=== PATIENT | female | born 1940 | race Asian ===

== ENCOUNTER → 2020-11-01 10:54 | Outpatient (BNVA) | payer MEDICARE, MEDICAID, SELFPAY | PROVIDERS: Visit Provider Student in an Organized Health Care Education/Training Program | DX: M19.90 Unspecified osteoarthritis, unspecified site (principal) | CPT/HCPCS: 99212 ==

== ENCOUNTER 2020-12-07 14:09 | Outpatient (REF) | payer MEDICARE, MEDICAID, SELFPAY ==
--- NOTE | ~2020-12-07 | MM_ITS ---
EXAMINATION: MM SCREENING DIGITAL BREAST TOMOSYNTHESIS, BILATERAL CLINICAL INFORMATION: Screening. Asymptomatic. The lifetime risk of breast cancer based on the Tyrer-Cuzick Model is 1%. COMPARISON: Outside mammography: 10/17/2015, 12/21/2013 ([facility], [place], [place]). TECHNIQUE: Digital breast tomosynthesis is performed in both the craniocaudal and mediolateral oblique views along with computer-aided detection (CAD). Synthesized 2D images are generated from the tomosynthesis. FINDINGS: The breasts are heterogeneously dense, which may obscure small masses (ACR BI-RADS breast composition Category c). There are no significant masses, abnormal calcifications, or other abnormalities. There is fibronodular parenchymal pattern with stable retroareolar duct ectasia, similar to prior outside exams. Bilateral scattered vascular and benign round calcifications are again noted. No significant changes. MM/MM tomosynthesis screening BI IMPRESSION: No significant changes from prior outside studies. ASSESSMENT: BI-RADS 2: Benign RECOMMENDATION: Routine annual mammography screening. This patient's information was entered into a reminder system with a target due date for their next mammogram.
== END 2020-12-07 14:10 | disposition home or self-care (01) ==
LOC: HO.MAMMO 14:09
PROVIDERS: Visit Provider Internal Medicine
DX: Z12.31 Encounter for screening mammogram for malignant neoplasm of breast (principal)
CPT/HCPCS: 77063; 77067

== ENCOUNTER 2021-10-29 08:57 | Outpatient (REF) | payer MEDICARE, MEDICAID, SELFPAY ==
[2021-10-29 11:52] LABS: Alanine Aminotransferase 13 U/L (0-31); Albumin Level 4.2 g/dL (3.5-5.0); Alkaline Phosphatase 60 U/L (39-117); Anion Gap 15 (12-20); Aspartate Amino Transferase 22 U/L (5-31); Bilirubin Total 0.5 mg/dL (0.0-1.0); Blood Urea Nitrogen 28 mg/dL (9-16); Calcium 9.7 mg/dL (8.4-10.2); Carbon Dioxide 25 mmol/L (22-29); Chloride 104 mmol/L (96-108); Estimated Glomerular Filt Rate 53; Glucose Random 92 mg/dL (60-115); Potassium 4.5 mmol/L (3.3-5.1); Sodium 139 mmol/L (135-145); Total Protein 7.4 g/dL (6.5-8.0)
== END 2021-10-29 08:58 | disposition home or self-care (01) ==
LOC: HO.LAB 08:57
PROVIDERS: PCP Internal Medicine; Visit Provider Nurse Practitioner Family
DX: M19.90 Unspecified osteoarthritis, unspecified site (principal)
CPT/HCPCS: 36415; 80053; 99212

== ENCOUNTER 2021-12-27 07:34 | Outpatient (REF) | payer MEDICARE, MEDICAID, SELFPAY ==
--- NOTE | ~2021-12-27 | MM_ITS ---
EXAMINATION: MM SCREENING DIGITAL BREAST TOMOSYNTHESIS, BILATERAL CLINICAL INFORMATION: Screening. Asymptomatic. The lifetime risk of breast cancer based on the Tyrer-Cuzick Model is 0.7%. COMPARISON: Mammography: December 07, 2020 and studies dating back to December 23, 2011. TECHNIQUE: Digital breast tomosynthesis is performed in both the craniocaudal and mediolateral oblique views along with computer-aided detection (CAD). Synthesized 2D images are generated from the tomosynthesis. FINDINGS: The breasts are heterogeneously dense, which may obscure small masses (ACR BI-RADS breast composition Category c). There is a stable parenchymal pattern of the right breast with no new abnormal dominant masses or suspicious grouping of microcalcifications. Within the upper outer aspect of the left breast there is a region of some architectural distortion which appears more prominent on mediolateral oblique view and spot compression view is recommended. This likely represents superimposition of fibroglandular tissue. MM/MM tomosynthesis screening BI IMPRESSION: Question increase in prominence of region of architectural distortion superior aspect of the right breast for which spot compression view is recommended. ASSESSMENT: BI-RADS 0: Incomplete - Need Additional Imaging Evaluation RECOMMENDATION: 1. Additional views of the left breast 2. Targeted ultrasound if warranted after review of the additional views. 3. Radiology department staff will contact the patient for additional imaging. This patient's information was entered into a reminder system with a target due date for their next mammogram.
== END 2021-12-27 07:35 | disposition home or self-care (01) ==
LOC: HO.MAMMO 07:34
PROVIDERS: Visit Provider Internal Medicine
DX: Z12.31 Encounter for screening mammogram for malignant neoplasm of breast (principal)
CPT/HCPCS: 77063; 77067

== ENCOUNTER 2022-02-13 10:48 | Outpatient (REF) | payer MEDICARE, MEDICAID, SELFPAY ==
--- NOTE | ~2022-02-13 | US_ITS ---
EXAMINATION: MM DIAGNOSTIC DIGITAL BREAST TOMOSYNTHESIS, LEFT. Targeted left breast ultrasound CLINICAL INFORMATION: Architectural distortion superior aspect left breast COMPARISON: Mammography: December 27, 2021 and studies dating back to December 23, 2011 TECHNIQUE: Digital breast tomosynthesis is performed. 2D images are generated from the tomosynthesis. The following views are obtained: 90 degree mediolateral and mediolateral oblique views. FINDINGS: The breasts are heterogeneously dense, which may obscure small masses (ACR BI-RADS breast composition Category c). Additional views show no significant mass, architectural abnormality, or abnormal calcifications. The region compresses out with no persistent suspicious mass identified. Targeted left breast ultrasound superior aspect did not demonstrate any abnormal cystic or solid masses. No region of distal sound shadowing appreciated. No edematous change within the parenchyma is seen. Results are discussed with the patient at time of visit. US/US breast LT limited IMPRESSION: No mammographic evidence of malignancy. ASSESSMENT: BI-RADS 1: Negative RECOMMENDATION: Routine annual mammography screening. This patient's information was entered into a reminder system with a target due date for their next mammogram.
--- NOTE | ~2022-02-13 | MM_ITS ---
EXAMINATION: MM DIAGNOSTIC DIGITAL BREAST TOMOSYNTHESIS, LEFT US BREAST, TARGETED, LEFT CLINICAL INFORMATION: Architectural distortion superior aspect left breast. COMPARISON: Mammography: 12/27/2021 and studies dating back to 12/23/2011. TECHNIQUE: Digital breast tomosynthesis is performed. 2D images are generated from the tomosynthesis. The following views are obtained: 90 degree mediolateral and mediolateral oblique views. FINDINGS: The breasts are heterogeneously dense, which may obscure small masses (ACR BI-RADS breast composition Category c). MAMMOGRAM: Additional views show no significant mass, architectural abnormality, or abnormal calcifications. The region compressed out with no persistent suspicious mass identified. ULTRASOUND: Targeted left breast ultrasound superior aspect did not demonstrate any abnormal cystic or solid masses. No region of distal sound shadowing appreciated. No edematous change within the parenchyma is seen. Results are discussed with the patient at time of visit. MM/MM tomosynthesis added views L IMPRESSION: No mammographic evidence of malignancy. ASSESSMENT: BI-RADS 1: Negative RECOMMENDATION: Routine annual mammography screening. This patient's information was entered into a reminder system with a target due date for their next mammogram.
== END 2022-02-13 10:49 | disposition home or self-care (01) ==
LOC: HO.MAMMO 10:48
PROVIDERS: PCP Internal Medicine; Visit Provider Internal Medicine
DX: R92.8 Other abnormal and inconclusive findings on diagnostic imaging of breast (principal)
CPT/HCPCS: 76642; 77061; 77065

== ENCOUNTER 2022-09-05 15:49 | Outpatient (REF) | payer MEDICARE, MEDICAID, SELFPAY ==
[2022-09-05 16:02] LABS: MANUAL DIFF FLAG NO
[2022-09-05 18:03] LABS: Basophils Percent Auto 0.5 % (0-2); Eosinophils Absolute Auto 0.2 X10*3/uL (0.0-0.4); Eosinophils Percent Auto 1.8 % (0-4); Hemoglobin 11.7 g/dl (12.0-16.0); Imm Gran Abs Auto 0.04 X10*3/uL (0.00-0.03); Imm Gran Pct Auto 0.5 % (0.0-0.4); Lymphocytes Absolute Auto 2.3 X10*3/uL (1.2-4.9); Lymphocytes Percent Auto 27.3 % (20-40); Mean Corpuscular HGB Conc 32.5 g/dl (31.0-35.0); Mean Corpuscular Hemoglobin 30.9 pg (27.0-33.0); Mean Platelet Volume 12.4 fL (9.4-12.3); Monocytes Absolute Auto 0.7 X10*3/uL (0.1-1.2); Monocytes Percent Auto 8.7 % (2-11); Neutrophils Absolute Auto 5.1 x10*3/uL (2.0-8.3); Neutrophils Percent Auto 61.2 % (45-73); Platelet Count 285 X10*3/uL (160-400); Red Blood Count 3.79 X10*6/uL (4.20-5.50); Red Cell Distribution Width 13.1 % (11.0-16.0); White Blood Count 8.3 X10*3/uL (4.8-10.8)
[2022-09-05 18:13] LABS: Alanine Aminotransferase 15 U/L (0-31); Albumin Level 4.2 g/dL (3.5-5.0); Alkaline Phosphatase 73 U/L (39-117); Anion Gap 18 (12-20); Aspartate Amino Transferase 20 U/L (5-31); Bilirubin Total 0.5 mg/dL (0.0-1.0); Blood Urea Nitrogen 19 mg/dL (9-16); Calcium 10.3 mg/dL (8.4-10.2); Carbon Dioxide 25 mmol/L (22-29); Chloride 101 mmol/L (96-108); Cholesterol 212 mg/dL; Estimated Glomerular Filt Rate 60; Glucose Random 90 mg/dL (60-115); HDL Cholesterol 62 mg/dL; LDL Cholesterol Calculated 122 mg/dl; Potassium 4.4 mmol/L (3.3-5.1); Sodium 140 mmol/L (135-145); Total Protein 7.6 g/dL (6.5-8.0); Triglycerides 141 mg/dL
[2022-09-05 18:33] LABS: Vitamin D 25-OH Total 30.1 ng/mL (>30)
== END 2022-09-05 15:50 | disposition home or self-care (01) ==
LOC: HO.LAB 15:49
PROVIDERS: PCP Internal Medicine; Visit Provider Internal Medicine
DX: Z00.00 Encounter for general adult medical examination without abnormal findings (principal); E78.2 Mixed hyperlipidemia; I10 Essential (primary) hypertension; M80.012 Age-related osteoporosis with current pathological fracture, left shoulder
CPT/HCPCS: 36415; 80053; 80061; 82306; 85025

== ENCOUNTER 2023-06-09 09:58 | Outpatient (REF) | payer MEDICARE, SELFPAY ==
[2023-06-09 10:17] LABS: MANUAL DIFF FLAG NO
[2023-06-09 10:57] LABS: Basophils Percent Auto 0.3 % (0-2); Eosinophils Absolute Auto 0.1 X10*3/uL (0.0-0.4); Eosinophils Percent Auto 0.7 % (0-4); Hematocrit 34.4 % (37.0-47.0); Hemoglobin 11.3 g/dl (12.0-16.0); Imm Gran Abs Auto 0.05 X10*3/uL (0.00-0.03); Imm Gran Pct Auto 0.7 % (0.0-0.4); Lymphocytes Percent Auto 29.3 % (20-40); Mean Corpuscular HGB Conc 32.8 g/dl (31.0-35.0); Mean Corpuscular Hemoglobin 30.1 pg (27.0-33.0); Mean Corpuscular Volume 91.7 fL (80.0-98.0); Mean Platelet Volume 11.9 fL (9.4-12.3); Monocytes Absolute Auto 0.6 X10*3/uL (0.1-1.2); Monocytes Percent Auto 8.3 % (2-11); Neutrophils Absolute Auto 4.1 x10*3/uL (2.0-8.3); Neutrophils Percent Auto 60.7 % (45-73); Platelet Count 217 X10*3/uL (160-400); Red Blood Count 3.75 X10*6/uL (4.20-5.50); Red Cell Distribution Width 13.3 % (11.0-16.0); White Blood Count 6.8 X10*3/uL (4.8-10.8)
[2023-06-09 11:33] LABS: Alanine Aminotransferase 13 U/L (0-31); Alkaline Phosphatase 55 U/L (39-117); Anion Gap 14 (12-20); Aspartate Amino Transferase 19 U/L (5-31); Bilirubin Total 0.8 mg/dL (0.0-1.0); Blood Urea Nitrogen 19 mg/dL (9-16); Calcium 10.2 mg/dL (8.4-10.2); Carbon Dioxide 26 mmol/L (22-29); Chloride 100 mmol/L (96-108); Cholesterol 190 mg/dL (<200); Estimated Glomerular Filt Rate 59; Glucose Random 92 mg/dL (60-115); HDL Cholesterol 48 mg/dL (>40); LDL Cholesterol Calculated 115 mg/dL (<100); Potassium 3.9 mmol/L (3.3-5.1); Sodium 136 mmol/L (135-145); Total Protein 7.7 g/dL (6.5-8.0); Triglycerides 139 mg/dL (<150)
== END 2023-06-09 09:59 | disposition home or self-care (01) ==
LOC: HO.LAB 09:58
PROVIDERS: PCP Internal Medicine; Visit Provider Internal Medicine
DX: E78.2 Mixed hyperlipidemia (principal); I10 Essential (primary) hypertension; Z87.310 Personal history of (healed) osteoporosis fracture; Z68.31 Body mass index [BMI] 31.0-31.9, adult
CPT/HCPCS: 36415; 80053; 80061; 85025

== ENCOUNTER 2023-10-27 09:55 | Outpatient (REF) | payer MEDICARE, SELFPAY ==
[2023-10-27 10:41] LABS: MANUAL DIFF FLAG NO
[2023-10-27 10:50] LABS: Basophils Percent Auto 0.6 % (0-2); Eosinophils Absolute Auto 0.1 X10*3/uL (0.0-0.4); Eosinophils Percent Auto 1.9 % (0-4); Hematocrit 34.7 % (37.0-47.0); Hemoglobin 11.2 g/dl (12.0-16.0); Imm Gran Abs Auto 0.02 X10*3/uL (0.00-0.03); Imm Gran Pct Auto 0.3 % (0.0-0.4); Lymphocytes Absolute Auto 1.7 X10*3/uL (1.2-4.9); Lymphocytes Percent Auto 26.6 % (20-40); Mean Corpuscular HGB Conc 32.3 g/dl (31.0-35.0); Mean Corpuscular Hemoglobin 30.2 pg (27.0-33.0); Mean Corpuscular Volume 93.5 fL (80.0-98.0); Mean Platelet Volume 12.1 fL (9.4-12.3); Monocytes Absolute Auto 0.6 X10*3/uL (0.1-1.2); Neutrophils Absolute Auto 3.8 x10*3/uL (2.0-8.3); Neutrophils Percent Auto 60.6 % (45-73); Platelet Count 233 X10*3/uL (160-400); Red Blood Count 3.71 X10*6/uL (4.20-5.50); Red Cell Distribution Width 13.1 % (11.0-16.0); White Blood Count 6.3 X10*3/uL (4.8-10.8)
[2023-10-27 11:36] LABS: Alanine Aminotransferase 16 U/L (0-31); Alkaline Phosphatase 70 U/L (39-117); Anion Gap 13 (12-20); Aspartate Amino Transferase 27 U/L (5-31); Bilirubin Total 0.4 mg/dL (0.0-1.0); Blood Urea Nitrogen 26 mg/dL (9-16); Calcium 9.4 mg/dL (8.4-10.2); Carbon Dioxide 26 mmol/L (22-29); Chloride 104 mmol/L (96-108); Cholesterol 176 mg/dL (<200); Estimated Glomerular Filt Rate 58; Glucose Random 91 mg/dL (60-115); HDL Cholesterol 50 mg/dL (>40); LDL Cholesterol Calculated 113 mg/dL (<100); Potassium 3.8 mmol/L (3.3-5.1); Sodium 139 mmol/L (135-145); Total Protein 7.6 g/dL (6.5-8.0); Triglycerides 68 mg/dL (<150)
[2023-10-27 11:56] LABS: Vitamin D 25-OH Total 24.4 ng/mL (>30)
[2023-10-27 11:58] LABS: Vitamin B12 376 pg/mL (200-900)
== END 2023-10-27 09:56 | disposition home or self-care (01) ==
LOC: HO.10HDL 09:55
PROVIDERS: Visit Provider Internal Medicine
DX: D51.9 Vitamin B12 deficiency anemia, unspecified (principal); E78.2 Mixed hyperlipidemia; I10 Essential (primary) hypertension; R82.90 Unspecified abnormal findings in urine; Z87.310 Personal history of (healed) osteoporosis fracture
CPT/HCPCS: 36415; 80053; 80061; 82306; 82607; 85025; 87086

== ENCOUNTER 2024-05-19 14:45 | Outpatient (REF) | payer MEDICARE, SELFPAY ==
[2024-05-19 16:52] LABS: Alanine Aminotransferase 15 U/L (0-31); Alkaline Phosphatase 53 U/L (39-117); Anion Gap 11 (12-20); Aspartate Amino Transferase 23 U/L (5-31); Bilirubin Total 0.4 mg/dL (0.0-1.0); Blood Urea Nitrogen 30 mg/dL (9-16); Calcium 9.1 mg/dL (8.4-10.2); Carbon Dioxide 24 mmol/L (22-29); Chloride 108 mmol/L (96-108); Estimated Glomerular Filt Rate 55; Glucose Random 91 mg/dL (60-115); Sodium 139 mmol/L (135-145); Total Protein 7.6 g/dL (6.5-8.0)
== END 2024-05-19 14:46 | disposition home or self-care (01) ==
LOC: HO.LAB 14:45
PROVIDERS: PCP Internal Medicine; Visit Provider Internal Medicine
DX: E78.2 Mixed hyperlipidemia (principal); I10 Essential (primary) hypertension; M17.12 Unilateral primary osteoarthritis, left knee; R26.0 Ataxic gait
CPT/HCPCS: 36415; 80053

== ENCOUNTER 2024-11-04 11:36 | Outpatient (REF) | payer MEDICARE, SELFPAY ==
[2024-11-04 13:18] LABS: MANUAL DIFF FLAG NO
[2024-11-04 13:38] LABS: Basophils Absolute Auto 0.1 X10*3/uL (0.0-0.2); Basophils Percent Auto 0.6 % (0-2); Eosinophils Absolute Auto 0.3 X10*3/uL (0.0-0.4); Eosinophils Percent Auto 2.9 % (0-4); Hematocrit 34.9 % (37.0-47.0); Hemoglobin 11.5 g/dl (12.0-16.0); Imm Gran Abs Auto 0.03 X10*3/uL (0.00-0.03); Imm Gran Pct Auto 0.3 % (0.0-0.4); Lymphocytes Absolute Auto 2.1 X10*3/uL (1.2-4.9); Lymphocytes Percent Auto 22.1 % (20-40); Mean Corpuscular Hemoglobin 30.9 pg (27.0-33.0); Mean Corpuscular Volume 93.8 fL (80.0-98.0); Mean Platelet Volume 11.8 fL (9.4-12.3); Monocytes Absolute Auto 0.9 X10*3/uL (0.1-1.2); Monocytes Percent Auto 9.2 % (2-11); Neutrophils Absolute Auto 6.1 x10*3/uL (2.0-8.3); Neutrophils Percent Auto 64.9 % (45-73); Platelet Count 263 X10*3/uL (160-400); Red Blood Count 3.72 X10*6/uL (4.20-5.50); Red Cell Distribution Width 13.9 % (11.0-16.0); White Blood Count 9.4 X10*3/uL (4.8-10.8)
[2024-11-04 14:11] LABS: Alanine Aminotransferase 11 U/L (0-31); Anion Gap 16 (12-20); Aspartate Amino Transferase 24 U/L (5-31); Bilirubin Total 0.5 mg/dL (0.0-1.0); Blood Urea Nitrogen 20 mg/dL (9-16); Carbon Dioxide 23 mmol/L (22-29); Chloride 103 mmol/L (96-108); Cholesterol 197 mg/dL (<200); Estimated Glomerular Filt Rate > 60; Glucose Random 84 mg/dL (60-115); HDL Cholesterol 61 mg/dL (>40); LDL Cholesterol Calculated 115 mg/dL (<100); Potassium 3.5 mmol/L (3.3-5.1); Sodium 138 mmol/L (135-145); Total Protein 7.9 g/dL (6.5-8.0); Triglycerides 106 mg/dL (<150)
[2024-11-04 14:23] LABS: Alkaline Phosphatase 73 U/L (39-117)
--- OUTSIDE RECORDS SUMMARY | 2024-11-04 14:28 | XMS_ITS | Data Portability ---
Author Organization [facility] ([place], [place]), , [facility] Address [address] [place] [address] Assessment Encounter Date Assessment Date Assessment LastModified by Organization Details LastModified Time 06/04/2018 06/04/2018 This is the 4th appointment for this patient. Her has been very ill and she reports that finding time for the HEP is difficult. He was put on hospice yesterday We discussed that PT would be put on hold at this time. She will contact the office when her situation changes. For now, understandably , she will spend time with her . [email or web address] Not available 06/04/2018 09:29:51 Plan of Treatment Reminders Order Date Submit Date Provider Last Modified By Organization Details Last Modified Time Details Appointments None recorded. Lab culture, urine 2018 019 [facility], [address] [place], [address], 9 09:32:55 Referral ophthalmol ogist referral - c/o blurry vision OD. anterior vitreous appears to be opaque inf. /3. 2018 019 [facility], [address] [place], [address], 1 13:14:21 occupation al therapist referral [address] [facility], [address] [place], [address], 9 10:58:44 Procedures None recorded. Surgeries None recorded. Imaging None recorded. Medication Orders Systane Ultra 0.4 %-0.3 % eye drops 2018 019 INTERFACE [facility][id number], [address] [place], [place], [id number], 9 16:38:08 betamethas one dipropiona te 0.05 % topical ointment 2018 019 [id number], [address], [place], [id number], 9 14:54:05 omeprazole 20 mg capsule,de layed release 2018 [facility]FACE [id number], [address] [place], [place], [id number], 9 14:54:06 Patient TargetsNo targets recorded. Patient Instructions Encounter Date Encounter Id Patient Instructions Last Modified By Organization Details Last Modified Time 10/01/2018 [id number] advance directives: care instructions Not available 10/01/2018 14:53:59 preventing falls : care instructions Not available 10/01/2018 14:53:59 hearing loss: ca re instructions Not available 10/01/2018 14:53:59 well visit, over 65: care instructions Not available 10/01/2018 14:53:59 For your heartbu rn symptoms please restart the omeprazole 20 mg and take it first thing in the morning on an empty stomach. Then come back for follow-up in 1 month to see if it is working for you. In 6 months you will need a hypertension management visit along with labs. Blood pressure could be better. Emphasized importance of taking her blood pressure medication every day. Not available 10/05/2018 18:04:37 04/07/2019 [id number] -OT referral to [facility] where you went before. Therapist may recommend brace. Could also see manager market development or ortho to consider injections. She wants to try the therapy first. -Needs BP clinic visit in 2 weeks after taking lisinopril/HCTZ every day. If BP not at goal will add Amlodipine 5mg. -For the heartburn - take the omeprazole regularly in AM on empty stomach. FU if still having issues. -Then labs and Wellness visit in 6 months. 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 ? if splint would be helpful Referring Physician: Jessy Lira, Family Medicine, Encounter Date: 04/07/2019 Software Integrator Referral for Vitreous opacity of right eye c/o blurry vision OD. anterior vitreous appears to be opaque inf. 07/23. Referring Physician: Martha Wong, Optometry, Encounter Date: 05/27/2019 Results Created Date Observation Date Name Description Value Unit Range Abnormal Flag Note LastModifiedBy Organization Detail LastModifiedTime 05/04/20 18 05/08/2018 cultu re, aerob ic culture, aerobic bacteria CULTU RE, AEROB IC BACTE CAMILLA MICRO NUMBE R: [id number] TEST STATU S: FINAL SPECI MEN SOURC E: ARM, LEFT SPECI MEN QUALI TY: ADEQU ATE RESUL T: A mix of non-p redom inati ng organ isms of quest ionab le signi fican ce was recov ered on cultu re and not furth er ident ified . (Note : Growt h did not detec t the prese nce of S. Aureu s, beta- hemol ytic Strep tococ ci or P. Aerug inosa ). Not Available [facility] [place] [facility] [address] [place] [address] Oskar Heard, [place], [address], 05/08/2018 13:32:08 09/29/1909/28/2018 BMP, serum or plasm a glucose 91 mg/dL 70-100 Not Available [address], [address], 09/28/2018 11:29:00 09/29/19 19 09/28/2018 BMP, serum or plasm a BUN 22 mg/dL 7-18 high Not Available [address], [address], 09/28/2018 11:29:00 09/29/19 19 09/28/2018 BMP, serum or plasm a creatinine 1.0 mg/dL 0.8-1. 3 Not Available [address], [address], 09/28/2018 11:29:00 09/29/19 19 09/28/2018 BMP, serum or plasm a B/C 22.0 ratio Not Available [address], [address], 09/28/2018 11:29:00 09/29/19 19 09/28/2018 BMP, serum or plasm a GFR -non 59.9 mL/mi n Recom daljit d GFR by the Natio nal Kidne y Found ation >60 mL/mi n/1.7 3m2 - Arlene l <60 mL/mi n/1.7 3m2 - Chron ic Kidne y Disea se <15 mL/mi n/1.7 3m2 - Kidne y Failu re Not Available [address], [address], 09/28/2018 11:29:00 09/29/19 19 09/28/2018 BMP, serum or plasm a GFR - if 68.9 mL/mi n For Afric an Ameri can patie nts: Resul ts Multi plied by 1.21 Not Available [address], [address], 09/28/2018 11:29:00 09/29/1909/28/2018 BMP, serum or plasm a sodium 140 mmol/ L 136-14 5 Not Available [address], [address], 09/28/2018 11:29:00 09/29/1909/28/2018 BMP, serum or plasm a potassium 3.8 mmol/ L 3.5-5. 1 Not Available [address], [address], 09/28/2018 11:29:00 09/29/1909/28/2018 BMP, serum or plasm a chloride 103 mmol/ L 96-107 Not Available [address], [address], 09/28/2018 11:29:00 09/29/1909/28/2018 BMP, serum or plasm a anion gap 10.3 5.0-15 .0 Not Available [address], [address], 09/28/2018 11:29:00 09/29/1909/28/2018 BMP, serum or plasm a CO2 27 mmol/ L 21-32 Not Available [address], [address], 09/28/2018 11:29:00 09/29/1909/28/2018 BMP, serum or plasm a calcium 8.7 mg/dL 8.5-10 .3 Not Available [address], [address], 09/28/2018 11:29:00 09/29/1909/28/2018 lipid panel , serum cholesterol 207 mg/dL <200 mg/dl Luciano able 200-2 39 mg/dl Borde rline High >240 mg/dl High Not Available [address], [address], 09/28/2018 11:29:01 09/29/19 19 09/28/2018 lipid panel , serum triglyceride s 100 mg/dL <150 mg/dL Arlene l 150-1 99 mg/dL Borde rline High 200-4 99 mg/dL High >500 mg/dL Very High Not Available [address], [address], 09/28/2018 11:29:01 09/29/1909/28/2018 lipid panel , serum direct HDL 58 mg/dL <40 mg/dl - Major Risk for CHD >60 mg/dl - Negat hermes Risk for CHD Not Available [address], [address], 09/28/2018 11:29:01 09/29/1909/28/2018 LDL, calcu lated , serum (OBS) LDL - calculated 129.0 RISK CATEG ORY LDL GOAL _ CHD or CHD Risk Equiv alent s <100 mg/dl (10-y ear risk >20%) 2+ Risk Facto rs <130 mg/dl (10-y ear risk <= 20%) 0-1 Risk Facto r? <160 mg/dl ? Almos t all peopl e with 0-1 risk facto r have a 10 year risk <10%, thus 10 year risk asses ment in peopl e with 0-1 risk facto r is not saroj everett. Not Available [address], [address], 09/28/2018 11:29:03 10/02/1910/01/2018 POC UA glu UA Negati ve Not Available [address], [address], 10/01/2018 14:38:54 10/02/1910/01/2018 POC UA clarity UA Clear Not Available [address], [address], 10/01/2018 14:38:54 10/02/1910/01/2018 POC UA uro UA 0.2000 Not Available [address], [address], 10/01/2018 14:38:54 10/02/1910/01/2018 POC UA ket UA Negati ve Not Available [address], [address], 10/01/2018 14:38:54 10/02/1910/01/2018 POC UA pro UA 1+ Not Available [address], [address], 10/01/2018 14:38:54 10/02/19 19 10/01/2018 POC UA nit UA Negati ve Not Available [address], [address], 10/01/2018 14:38:54 10/02/1910/01/2018 POC UA brayan UA Trace Not Available [address], [address], 10/01/2018 14:38:54 10/02/1910/01/2018 POC UA pH UA 7.0000 Not Available [address], [address], 10/01/2018 14:38:54 10/02/1910/01/2018 POC UA SG UA >=1.03 00 Not Available [address], [address], 10/01/2018 14:38:54 10/02/1910/01/2018 POC UA color UA Yellow Not Available [address], [address], 10/01/2018 14:38:54 10/02/1910/01/2018 POC UA blo UA Trace- intact Not Available [address], [address], 10/01/2018 14:38:54 10/02/1910/01/2018 POC UA sofia UA Negati ve Not Available [address], [address], 10/01/2018 14:38:54 10/02/1910/03/2018 cultu re, urine culture, urine, routine CULTU RE, URINE , ROUTI NE MICRO NUMBE R: [id number] TEST STATU S: FINAL SPECI MEN SOURC E: URINE SPECI MEN QUALI TY: ADEQU ATE RESUL T: Multi ple organ isms prese nt, each less than 10,00 0 CFU/m L. These organ isms, commo nly found on exter nal and inter nal genit pita, are consi dered to be colon izers . No furth er testi ng perfo rmed. Not Available [facility] [place] [facility] [address] Oskar Heard, [place], [place], [address], 10/03/2018 09:32:55 04/02/2004/02/2019 BMP, serum or plasm a glucose 95 mg/dL 70-100 Not Available [address], [address], 04/02/2019 12:44:48 04/02/2004/02/2019 BMP, serum or plasm a BUN 21 mg/dL 7-18 high Not Available [address], [address], 04/02/2019 12:44:48 04/02/2004/02/2019 BMP, serum or plasm a creatinine 1.0 mg/dL 0.8-1. 3 Not Available [address], [address], 04/02/2019 12:44:48 04/02/2004/02/2019 BMP, serum or plasm a B/C 21.0 ratio Not Available [address], [address], 04/02/2019 12:44:48 04/02/2004/02/2019 BMP, serum or plasm a GFR -non 59.9 mL/mi n Recom daljit d GFR by the Natio nal Kidne y Found ation >60 mL/mi n/1.7 3m2 - Arlene l <60 mL/mi n/1.7 3m2 - Chron ic Kidne y Disea se <15 mL/mi n/1.7 3m2 - Kidne y Failu re Not Available [address], [address], 04/02/2019 12:44:48 04/02/2004/02/2019 BMP, serum or plasm a GFR - if 68.9 mL/mi n For Afric an Ameri can patie nts: Resul ts Multi plied by 1.21 Not Available [address], [address], 04/02/2019 12:44:48 04/02/2004/02/2019 BMP, serum or plasm a sodium 140 mmol/ L 136-14 5 Not Available [address], [address], 04/02/2019 12:44:48 04/02/2004/02/2019 BMP, serum or plasm a potassium 3.9 mmol/ L 3.5-5. 1 Not Available [address], [address], 04/02/2019 12:44:48 04/02/2004/02/2019 BMP, serum or plasm a chloride 102 mmol/ L 96-107 Not Available [address], [address], 04/02/2019 12:44:48 04/02/2004/02/2019 BMP, serum or plasm a anion gap 11.3 5.0-15 .0 Not Available [address], [address], 04/02/2019 12:44:48 04/02/2004/02/2019 BMP, serum or plasm a CO2 27 mmol/ L 21-32 Not Available [address], [address], 04/02/2019 12:44:48 04/02/2004/02/2019 BMP, serum or plasm a calcium 9.4 mg/dL 8.5-10 .3 Not Available [address], [address], 04/02/2019 12:44:48 04/02/2004/02/2019 lipid panel , serum cholesterol 215 mg/dL <200 mg/dl Luciano able 200-2 39 mg/dl Borde rline High >240 mg/dl High Not Available [address], [address], 04/02/2019 12:44:49 04/02/2004/02/2019 lipid panel , serum triglyceride s 116 mg/dL <150 mg/dL Arlene l 150-1 99 mg/dL Borde rline High 200-4 99 mg/dL High >500 mg/dL Very High Not Available [address], [address], 04/02/2019 12:44:49 04/02/2004/02/2019 lipid panel , serum direct HDL 53 mg/dL <40 mg/dl - Major Risk for CHD >60 mg/dl - Negat hermes Risk for CHD Not Available [address], [address], 04/02/2019 12:44:49 04/02/2004/02/2019 LDL, calcu lated , serum (OBS) LDL - calculated 138.8 RISK CATEG ORY LDL GOAL _ CHD or CHD Risk Equiv alent s <100 mg/dl (10-y ear risk >20%) 2+ Risk Facto rs <130 mg/dl (10-y ear risk <= 20%) 0-1 Risk Facto r? <160 mg/dl ? Almos t all peopl e with 0-1 risk facto r have a 10 year risk <10%, thus 10 year risk asses ment in peopl e with 0-1 risk facto r is not saroj everett. Not Available [address], [address], 04/02/2019 12:44:49 12/23/1912/23/2019 CMP, serum or plasm a glucose 86 mg/dL 70-100 Not Available [address], [address], 12/23/2019 15:41:16 12/23/1912/23/2019 CMP, serum or plasm a BUN 16 mg/dL 7-18 Not Available [address], [address], 12/23/2019 15:41:16 12/23/19 20 12/23/2019 CMP, serum or plasm a creatinine 1.0 mg/dL 0.8-1. 3 Not Available [address], [address], 12/23/2019 15:41:16 12/23/19 20 12/23/2019 CMP, serum or plasm a B/C 16.0 ratio Not Available [address], [address], 12/23/2019 15:41:16 12/23/1912/23/2019 CMP, serum or plasm a GFR -non 59.8 mL/mi n Recom daljit d GFR by the Natio nal Kidne y Found ation >60 mL/mi n/1.7 3m2 - Arlene l <60 mL/mi n/1.7 3m2 - Chron ic Kidne y Disea se <15 mL/mi n/1.7 3m2 - Kidne y Failu re Not Available [address], [address], 12/23/2019 15:41:16 12/23/1912/23/2019 CMP, serum or plasm a GFR - if 68.7 mL/mi n For Afric an Ameri can patie nts: Resul ts Multi plied by 1.21 Not Available [address], [address], 12/23/2019 15:41:16 12/23/1912/23/2019 CMP, serum or plasm a sodium 140 mmol/ L 136-14 5 Not Available [address], [address], 12/23/2019 15:41:16 12/23/19 20 12/23/2019 CMP, serum or plasm a potassium 4.4 mmol/ L 3.5-5. 1 Not Available [address], [address], 12/23/2019 15:41:16 12/23/19 20 12/23/2019 CMP, serum or plasm a chloride 103 mmol/ L 96-107 Not Available [address], [address], 12/23/2019 15:41:16 12/23/19 20 12/23/2019 CMP, serum or plasm a anion gap 10.6 5.0-15 .0 Not Available [address], [address], 12/23/2019 15:41:16 12/23/1912/23/2019 CMP, serum or plasm a CO2 26 mmol/ L 21-32 Not Available [address], [address], 12/23/2019 15:41:16 12/23/19 20 12/23/2019 CMP, serum or plasm a calcium 9.2 mg/dL 8.5-10 .3 Not Available [address], [address], 12/23/2019 15:41:16 12/23/1912/23/2019 CMP, serum or plasm a total protein 6.8 g/dL 6.4-8. 2 Not Available [address], [address], 12/23/2019 15:41:16 12/23/1912/23/2019 CMP, serum or plasm a albumin 3.7 g/dL 3.4-5. 0 Not Available [address], [address], 12/23/2019 15:41:16 12/23/1912/23/2019 CMP, serum or plasm a globulin 3.1 g/dL Not Available [address], [address], 12/23/2019 15:41:16 12/23/1912/23/2019 CMP, serum or plasm a A/G 1.2 ratio 0.8-2. 0 Not Available [address], [address], 12/23/2019 15:41:16 12/23/1912/23/2019 CMP, serum or plasm a total bilirubin 0.40 mg/dL 0.00-1 .00 Not Available [address], [address], 12/23/2019 15:41:16 12/23/1912/23/2019 CMP, serum or plasm a AST 20 U/L 0-37 Not Available [address], [address], 12/23/2019 15:41:16 12/23/1912/23/2019 CMP, serum or plasm a ALT 18 U/L 6-63 Not Available [address], [address], 12/23/2019 15:41:16 12/23/1912/23/2019 CMP, serum or plasm a alk. phos. 55 U/L 50-136 Not Available [address], [address], 12/23/2019 15:41:16 12/23/1912/23/2019 lipid panel , serum cholesterol 201 mg/dL <200 mg/dl Luciano able 200-2 39 mg/dl Borde rline High >240 mg/dl High Not Available [address], [address], 12/23/2019 15:41:16 12/23/1912/23/2019 lipid panel , serum triglyceride s 104 mg/dL <150 mg/dL Arlene l 150-1 99 mg/dL Borde rline High 200-4 99 mg/dL High >500 mg/dL Very High Not Available [address], [address], 12/23/2019 15:41:16 12/23/1912/23/2019 lipid panel , serum direct HDL 54 mg/dL <40 mg/dl - Major Risk for CHD >60 mg/dl - Negat hermes Risk for CHD Not Available [address], [address], 12/23/2019 15:41:16 12/23/19 20 12/23/2019 LDL, direc t, serum direct LDL 126 mg/dL RISK CATEG ORY LDL GOAL _ CHD or CHD Risk Equiv alent s <100 mg/dl (10-y ear risk >20%) 2+ Risk Facto rs <130 mg/dl (10-y ear risk <= 20%) 0-1 Risk Facto r? <160 mg/dl ? Almos t all peopl e with 0-1 risk facto r have a 10 year risk <10%, thus 10 year risk asses ment in peopl e with 0-1 risk facto r is not neces marguerite. Not Available [address], [address], 12/23/2019 15:41:17 12/23/1912/23/2019 HbA1c (hemo globi n A1c), blood hemoglobin A1C 5.9 % 4.8-6. 0 Goal: <7% in Patie nts with Diabe oh Not Available [address], [address], 12/23/2019 16:08:24 12/23/1912/23/2019 HbA1c (hemo globi n A1c), blood estimated average glucose 122.6 mg/dL Not Available [address], [address], 12/23/2019 16:08:24 12/23/1912/23/2019 TSH, serum or plasm a TSH 3.19 uIU/m L 0.50-6 .00 The Ameri can Colle ge of Endoc rinol ogy and Ameri can Thyro id Assoc iatio n recom mend goal TSH value s betwe en 0.4-4 .0 mIU/m L. Not Available [address], [address], 12/23/2019 16:25:31 06/02/2006/02/2020 CBC WBC 5.64 K/? ? ?L 3.98-1 0.04 Not Available [address], [address], 06/02/2020 09:25:05 06/02/2006/02/2020 CBC RBC 3.94 M/? ? ?L 3.93-5 .22 Not Available [address], [address], 06/02/2020 09:25:05 06/02/2006/02/2020 CBC HGB 12.1 g/dL 11.2-1 5.7 Not Available [address], [address], 06/02/2020 09:25:05 06/02/2006/02/2020 CBC HCT 37.4 % 34.1-4 4.9 Not Available [address], [address], 06/02/2020 09:25:05 06/02/2006/02/2020 CBC MCV 94.9 fL 79.4-9 4.8 high Not Available [address], [address], 06/02/2020 09:25:05 06/02/2006/02/2020 CBC MCH 30.7 pg 25.6-3 2.2 Not Available [address], [address], 06/02/2020 09:25:05 06/02/2006/02/2020 CBC MCHC 32.4 g/dL 32.2-3 5.5 Not Available [address], [address], 06/02/2020 09:25:05 06/02/2006/02/2020 CBC plt 226 K/? ? ?L 182-36 9 Not Available [address], [address], 06/02/2020 09:25:05 06/02/2006/02/2020 CBC MPV 12.2 fL 9.4-12 .3 Not Available [address], [address], 06/02/2020 09:25:05 06/02/2006/02/2020 CBC neut% 52.1 % 34.0-7 1.1 Not Available [address], [address], 06/02/2020 09:25:05 06/02/2006/02/2020 CBC neut# 2.94 1.56-6 .13 Not Available [address], [address], 06/02/2020 09:25:05 06/02/2006/02/2020 CBC lymph % 32.8 % 19.3-5 1.7 Not Available [address], [address], 06/02/2020 09:25:05 06/02/2006/02/2020 CBC lymph # 1.85 K/? ? ?L 1.18-3 .74 Not Available [address], [address], 06/02/2020 09:25:05 06/02/2006/02/2020 CBC mono% 11.9 % 4.7-12 .5 Not Available [address], [address], 06/02/2020 09:25:05 06/02/2006/02/2020 CBC mono# 0.67 0.24-0 .56 high Not Available [address], [address], 06/02/2020 09:25:05 06/02/20 20 06/02/2020 CBC eo% 2.1 % 0.7-5. 8 Not Available [address], [address], 06/02/2020 09:25:05 06/02/20 20 06/02/2020 CBC eo# 0.12 0.04-0 .36 Not Available [address], [address], 06/02/2020 09:25:05 06/02/20 20 06/02/2020 CBC baso% 0.7 % 0.1-1. 2 Not Available [address], [address], 06/02/2020 09:25:05 06/02/2006/02/2020 CBC baso# 0.04 0.00-0 .08 Not Available [address], [address], 06/02/2020 09:25:05 06/02/20 20 06/02/2020 CBC RDW-CV 12.9 % 11.7-1 4.4 Not Available [address], [address], 06/02/2020 09:25:05 06/02/20 20 06/02/2020 CBC Ig% 0.400 % 0.000- 1.500 Ig % >0.5 Indic ates possi ble Left Shift Not Available [address], [address], 06/02/2020 09:25:05 06/02/2006/02/2020 CBC Ig# 0.020 0.000- 0.093 Not Available [address], [address], 06/02/2020 09:25:05 06/02/20 20 06/02/2020 CBC NRBC% 0.0 % 0.0-0. 2 Not Available [address], [address], 06/02/2020 09:25:05 06/02/20 20 06/02/2020 CBC NRBC# 0.000 0.000- 0.012 Not Available [address], [address], 06/02/2020 09:25:05 06/02/20 20 06/02/2020 CMP, serum or plasm a glucose 90 mg/dL 70-100 Not Available [address], [address], 06/02/2020 12:18:14 06/02/20 20 06/02/2020 CMP, serum or plasm a BUN 13 mg/dL 7-18 Not Available [address], [address], 06/02/2020 12:18:14 06/02/20 20 06/02/2020 CMP, serum or plasm a creatinine 0.8 mg/dL 0.8-1. 3 Not Available [address], [address], 06/02/2020 12:18:14 06/02/20 20 06/02/2020 CMP, serum or plasm a B/C 16.3 ratio Not Available [address], [address], 06/02/2020 12:18:14 06/02/20 20 06/02/2020 CMP, serum or plasm a GFR -non 77.3 mL/mi n Recom daljit d GFR by the Natio nal Kidne y Found ation >60 mL/mi n/1.7 3m2 - Arlene l <60 mL/mi n/1.7 3m2 - Chron ic Kidne y Disea se <15 mL/mi n/1.7 3m2 - Kidne y Failu re Not Available [address], [address], 06/02/2020 12:18:14 06/02/20 20 06/02/2020 CMP, serum or plasm a GFR - if 88.9 mL/mi n For Afric an Ameri can patie nts: Resul ts Multi plied by 1.21 Not Available [address], [address], 06/02/2020 12:18:14 06/02/2006/02/2020 CMP, serum or plasm a sodium 141 mmol/ L 136-14 5 Not Available [address], [address], 06/02/2020 12:18:14 06/02/2006/02/2020 CMP, serum or plasm a potassium 4.2 mmol/ L 3.5-5. 1 Not Available [address], [address], 06/02/2020 12:18:14 06/02/2006/02/2020 CMP, serum or plasm a chloride 103 mmol/ L 96-107 Not Available [address], [address], 06/02/2020 12:18:14 06/02/2006/02/2020 CMP, serum or plasm a anion gap 11.5 5.0-15 .0 Not Available [address], [address], 06/02/2020 12:18:14 06/02/2006/02/2020 CMP, serum or plasm a CO2 27 mmol/ L 21-32 Not Available [address], [address], 06/02/2020 12:18:14 06/02/2006/02/2020 CMP, serum or plasm a calcium 9.2 mg/dL 8.5-10 .3 Not Available [address], [address], 06/02/2020 12:18:14 06/02/2006/02/2020 CMP, serum or plasm a total protein 7.6 g/dL 6.4-8. 2 Not Available [address], [address], 06/02/2020 12:18:14 06/02/20 20 06/02/2020 CMP, serum or plasm a albumin 3.9 g/dL 3.4-5. 0 Not Available [address], [address], 06/02/2020 12:18:14 06/02/20 20 06/02/2020 CMP, serum or plasm a globulin 3.7 g/dL Not Available [address], [address], 06/02/2020 12:18:14 06/02/2006/02/2020 CMP, serum or plasm a A/G 1.1 ratio 0.8-2. 0 Not Available [address], [address], 06/02/2020 12:18:14 06/02/2006/02/2020 CMP, serum or plasm a total bilirubin 0.40 mg/dL 0.00-1 .00 Not Available [address], [address], 06/02/2020 12:18:14 06/02/2006/02/2020 CMP, serum or plasm a AST 17 U/L 0-37 Not Available [address], [address], 06/02/2020 12:18:14 06/02/2006/02/2020 CMP, serum or plasm a ALT 22 U/L 6-63 Not Available [address], [address], 06/02/2020 12:18:14 06/02/2006/02/2020 CMP, serum or plasm a alk. phos. 60 U/L 50-136 Not Available [address], [address], 06/02/2020 12:18:14 06/02/2006/02/2020 lipid panel , serum cholesterol 192 mg/dL <200 mg/dl Luciano able 200-2 39 mg/dl Borde rline High >240 mg/dl High Not Available [address], [address], 06/02/2020 12:18:15 06/02/2006/02/2020 lipid panel , serum triglyceride s 86 mg/dL <150 mg/dL Arlene l 150-1 99 mg/dL Borde rline High 200-4 99 mg/dL High >500 mg/dL Very High Not Available [address], [address], 06/02/2020 12:18:15 06/02/2006/02/2020 lipid panel , serum direct HDL 67 mg/dL <40 mg/dl - Major Risk for CHD >60 mg/dl - Negat hermes Risk for CHD Not Available [address], [address], 06/02/2020 12:18:15 06/02/2006/02/2020 LDL, calcu lated , serum (OBS) LDL - calculated 107.8 RISK CATEG ORY LDL GOAL _ CHD or CHD Risk Equiv alent s <100 mg/dl (10-y ear risk >20%) 2+ Risk Facto rs <130 mg/dl (10-y ear risk <= 20%) 0-1 Risk Facto r? <160 mg/dl ? Almos t all peopl e with 0-1 risk facto r have a 10 year risk <10%, thus 10 year risk asses ment in peopl e with 0-1 risk facto r is not saroj marguerite. Not Available [address], [address], 06/02/2020 12:18:16 06/02/2006/02/2020 vitam in D, 25-hy droxy , total , serum vitamin D 25-hydroxy EIA 22.4 NG/mL 20.0-9 9.9 Thera py is based on measu remen t of total 25-OH D, with level s less than 20 ng/mL indic ative of Vitam in D defic iency . Level s betwe en 20ng/ mL and 30 ng/mL sugge st insuf ficie ncy. Optim al Level s are great er than 30 ng/mL . Not Available [address], [address], 06/02/2020 15:32:01 06/02/20 20 06/08/2020 vitam in B12, serum vitamin B12 800 pg/mL 230-10 50 Not Available [address], [address], 06/08/2020 12:56:27 08/06/19 22 08/07/2021 CBC WBC 6.67 K/? ? ?L 3.98-1 0.04 Not Available [address], [address], 08/07/2021 09:53:52 08/06/19 22 08/07/2021 CBC RBC 3.79 M/? ? ?L 3.93-5 .22 low Not Available [address], [address], 08/07/2021 09:53:52 08/06/19 22 08/07/2021 CBC HGB 11.7 g/dL 11.2-1 5.7 Not Available [address], [address], 08/07/2021 09:53:52 08/06/19 22 08/07/2021 CBC HCT 36.5 % 34.1-4 4.9 Not Available [address], [address], 08/07/2021 09:53:52 08/06/19 22 08/07/2021 CBC MCV 96.3 fL 79.4-9 4.8 high Not Available [address], [address], 08/07/2021 09:53:52 08/06/19 22 08/07/2021 CBC MCH 30.9 pg 25.6-3 2.2 Not Available [address], [address], 08/07/2021 09:53:52 08/06/19 22 08/07/2021 CBC MCHC 32.1 g/dL 32.2-3 5.5 low Not Available [address], [address], 08/07/2021 09:53:52 08/06/19 22 08/07/2021 CBC plt 217 K/? ? ?L 182-36 9 Not Available [address], [address], 08/07/2021 09:53:52 08/06/19 22 08/07/2021 CBC MPV 12.7 fL 9.4-12 .3 high Not Available [address], [address], 08/07/2021 09:53:52 08/06/19 22 08/07/2021 CBC neut% 56.1 % 34.0-7 1.1 Not Available [address], [address], 08/07/2021 09:53:52 08/06/19 22 08/07/2021 CBC neut# 3.73 1.56-6 .13 Not Available [address], [address], 08/07/2021 09:53:52 08/06/19 22 08/07/2021 CBC lymph % 32.2 % 19.3-5 1.7 Not Available [address], [address], 08/07/2021 09:53:52 08/06/19 22 08/07/2021 CBC lymph # 2.15 K/? ? ?L 1.18-3 .74 Not Available [address], [address], 08/07/2021 09:53:52 08/06/19 22 08/07/2021 CBC mono% 9.4 % 4.7-12 .5 Not Available [address], [address], 08/07/2021 09:53:52 08/06/19 22 08/07/2021 CBC mono# 0.63 0.24-0 .56 high Not Available [address], [address], 08/07/2021 09:53:52 08/06/19 22 08/07/2021 CBC eo% 1.6 % 0.7-5. 8 Not Available [address], [address], 08/07/2021 09:53:52 08/06/19 22 08/07/2021 CBC eo# 0.11 0.04-0 .36 Not Available [address], [address], 08/07/2021 09:53:52 08/06/19 22 08/07/2021 CBC baso% 0.3 % 0.1-1. 2 Not Available [address], [address], 08/07/2021 09:53:52 08/06/19 22 08/07/2021 CBC baso# 0.02 0.00-0 .08 Not Available [address], [address], 08/07/2021 09:53:52 08/06/19 22 08/07/2021 CBC RDW-CV 13.5 % 11.7-1 4.4 Not Available [address], [address], 08/07/2021 09:53:52 08/06/19 22 08/07/2021 CBC Ig% 0.400 % 0.000- 1.500 Ig % >0.5 Indic ates possi ble Left Shift Not Available [address], [address], 08/07/2021 09:53:52 08/06/19 22 08/07/2021 CBC Ig# 0.030 0.000- 0.093 Not Available [address], [address], 08/07/2021 09:53:52 08/06/19 22 08/07/2021 CBC NRBC% 0.0 % 0.0-0. 2 Not Available [address], [address], 08/07/2021 09:53:52 08/06/19 22 08/07/2021 CBC NRBC# 0.000 0.000- 0.012 Not Available [address], [address], 08/07/2021 09:53:52 08/06/19 22 08/07/2021 COMP. METAB OLIC PANEL glucose 117 mg/dL 70-100 high Not Available [address], [address], 08/07/2021 10:04:55 08/06/19 22 08/07/2021 COMP. METAB OLIC PANEL BUN 19 mg/dL 7-18 high Not Available [address], [address], 08/07/2021 10:04:55 08/06/19 22 08/07/2021 COMP. METAB OLIC PANEL creatinine 1.1 mg/dL 0.8-1. 3 Not Available [address], [address], 08/07/2021 10:04:55 08/06/19 22 08/07/2021 COMP. METAB OLIC PANEL B/C 17.3 ratio Not Available [address], [address], 08/07/2021 10:04:55 08/06/19 22 08/07/2021 COMP. METAB OLIC PANEL GFR 50.5 mL/mi n abnormal >=60m L/min - Arlene l or midly reduc ed <60mL /min- Decre ased kidne y funct ion <15mL /min - Kidne y failu re [facility] calcu lates estim ated Glome rular Filtr ation Rate (eGFR ) using the Chron ic Kidne y Disea se Epide miolo gy Colla borat ion (CKD- EPI) Equat ion (Inke r et. al 2020) as recom daljit d by the Natio nal Kidne y Found ation . eGFR is based on age, serum creat inine , and sex. CKD-E PI does not calcu late eGFR by race, does not apply to child judy (age <18 years ), and shoul d not be used in pregn lauren. Not Available [address], [address], 08/07/2021 10:04:55 08/06/19 22 08/07/2021 COMP. METAB OLIC PANEL sodium 139 mmol/ L 136-14 5 Not Available [address], [address], 08/07/2021 10:04:55 08/06/19 22 08/07/2021 COMP. METAB OLIC PANEL potassium 3.7 mmol/ L 3.5-5. 1 Not Available [address], [address], 08/07/2021 10:04:55 08/06/19 22 08/07/2021 COMP. METAB OLIC PANEL chloride 101 mmol/ L 96-107 Not Available [address], [address], 08/07/2021 10:04:55 08/06/19 22 08/07/2021 COMP. METAB OLIC PANEL anion gap 11.6 5.0-15 .0 Not Available [address], [address], 08/07/2021 10:04:55 08/06/19 22 08/07/2021 COMP. METAB OLIC PANEL CO2 26 mmol/ L 21-32 Not Available [address], [address], 08/07/2021 10:04:55 08/06/19 22 08/07/2021 COMP. METAB OLIC PANEL calcium 8.8 mg/dL 8.5-10 .3 Not Available [address], [address], 08/07/2021 10:04:55 08/06/19 22 08/07/2021 COMP. METAB OLIC PANEL total protein 7.2 g/dL 6.4-8. 2 Not Available [address], [address], 08/07/2021 10:04:55 08/06/19 22 08/07/2021 COMP. METAB OLIC PANEL albumin 3.6 g/dL 3.4-5. 0 Not Available [address], [address], 08/07/2021 10:04:55 08/06/19 22 08/07/2021 COMP. METAB OLIC PANEL globulin 3.6 g/dL Not Available [address], [address], 08/07/2021 10:04:55 08/06/19 22 08/07/2021 COMP. METAB OLIC PANEL A/G 1.0 ratio 0.8-2. 0 Not Available [address], [address], 08/07/2021 10:04:55 08/06/19 22 08/07/2021 COMP. METAB OLIC PANEL total bilirubin 0.40 mg/dL 0.00-1 .00 Not Available [address], [address], 08/07/2021 10:04:55 08/06/19 22 08/07/2021 COMP. METAB OLIC PANEL AST 23 U/L 0-37 Not Available [address], [address], 08/07/2021 10:04:55 08/06/19 22 08/07/2021 COMP. METAB OLIC PANEL ALT 23 U/L 6-63 Not Available [address], [address], 08/07/2021 10:04:55 08/06/19 22 08/07/2021 COMP. METAB OLIC PANEL alk. phos. 53 U/L 50-136 Not Available [address], [address], 08/07/2021 10:04:55 08/06/19 22 08/07/2021 DIREC T LDL direct LDL 109 mg/dL RISK CATEG ORY LDL GOAL _ CHD or CHD Risk Equiv alent s <100 mg/dl (10-y ear risk >20%) 2+ Risk Facto rs <130 mg/dl (10-y ear risk <= 20%) 0-1 Risk Facto r? <160 mg/dl ? Almos t all peopl e with 0-1 risk facto r have a 10 year risk <10%, thus 10 year risk asses ment in peopl e with 0-1 risk facto r is not neces marguerite. Not Available [address], [address], 08/07/2021 10:04:56 08/06/19 22 08/07/2021 TSH TSH 1.93 uIU/m L 0.50-6 .00 LIPM= Speci men Moder ately Lipem ic. Chem Resul ts may be effec aliyah. The Ameri can Colle ge of Endoc rinol ogy and Ameri can Thyro id Assoc iatio n recom mend goal TSH value s betwe en 0.4-4 .0 mIU/m L. Not Available [address], [address], 08/07/2021 11:14:27 08/06/1908/08/2021 LIPID PANEL cholesterol 202 mg/dL LIPS= Speci men Sligh tly Lipem ic. Chem Resul ts may be effec aliyah. <200 mg/dl Luciano able 200-2 39 mg/dl Borde rline High >240 mg/dl High Not Available [address], [address], 08/08/2021 11:54:11 08/06/1908/08/2021 LIPID PANEL triglyceride s 409 mg/dL high <150 mg/dL Arlene l 150-1 99 mg/dL Borde rline High 200-4 99 mg/dL High >500 mg/dL Very High Not Available [address], [address], 08/08/2021 11:54:11 08/06/19 22 08/08/2021 LIPID PANEL direct HDL 47 mg/dL <40 mg/dl - Major Risk for CHD >60 mg/dl - Negat hermes Risk for CHD Not Available [address], [address], 08/08/2021 11:54:11 Result Notes None recorded. Problems Name Problem SNOMED Code Status Onset Date Resolution Date Notes Provider Name and Address Organization Details Recorded Time Helicoba cter-ass ociated gastriti s 95244096 Active Nino Norris MD [address] [place] [address], [address], [facility] 11:09:02 Gastroes ophageal reflux disease 139018940 Active 2018 Jessy Lira NP [address] [place] [address], [address], [facility] 14:11:48 Mixed hyperlip idemia 279040824 Completed 200311/12/2016 Removal Reason: no longer an issue VLADIMIR Polanco [address] [place], [address], [facility] 13:47:48 Nervous system symptoms Completed 200303/16/2011 Not Available [facility] 3 03:12:13 Nausea 146654597 Completed 200803/16/2011 Not Available [facility] 3 03:12:13 Presbyop ia 24239597 Completed 200604/13/2013 Mariola Alejo NP [address] [place] [address], [address], [facility] 18:28:39 Essentia l hyperten gina 25750245 Completed 04/13/2013 Mariola Alejo NP [address] [place] [address], [address], [facility] 18:28:39 Nausea and vomiting 87653366 Completed 200603/16/2011 Not Available [facility] 3 03:12:13 Constipa tion 73227410 Completed 03/16/2011 Not Available [facility] 3 03:12:13 Diarrhea 98518126 Completed 200603/16/2011 Not Available [facility] 3 03:12:13 Benign essentia l hyperten gina 5534825 Active 2003 Mariola Alejo NP [address] [place] [address], [address], [facility] 20:50:33 Multiple joint pain 93783117 Completed 03/16/2011 Not Available [facility] 3 03:12:13 Acute pharyngi tis 911162296 Completed 03/16/2011 Not Available [facility] 3 03:12:13 Hypermet ropia 26211521 Completed 200404/13/2013 Mariola Alejo NP [address] [place] [address], [address], [facility] 18:28:39 Disorder of skeletal system 33276152 Completed 200303/16/2011 Not Available 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 3 03:12:13 Pain in wrist 96723088 Completed 200403/16/2011 Not Available [facility] 3 03:12:13 Acute bronchit is 24540400 Completed 200703/16/2011 Not Available [facility] 3 03:12:13 Malaise and fatigue 602076091 Completed 200803/16/2011 Not Available [facility] 3 03:12:13 Decrease in height 07915114 Completed 200603/16/2011 Not Available [facility] 3 03:12:13 Fever 742852131 Completed 200803/16/2011 Not Available [facility] 3 03:12:13 Shoulder pain 46694683 Completed 03/16/2011 Not Available [facility] 3 03:12:13 Myopia 56141428 Completed 200703/16/2011 Not Available [facility] 3 03:12:13 Astigmat ism 81900806 Completed 200604/13/2013 Mariola Alejo NP [address] [place] [address], [address], [facility] 18:28:39 Nuclear senile cataract 331941950 Completed 200405/27/2019 Martha Wong OD [address] [place], [address], [facility] 16:39:53 Sprain of ankle 65804908 Completed 200503/16/2011 Not Available [facility] 3 03:12:13 Joint pain in ankle and foot Completed 200503/16/2011 Not Available 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 Completed 200404/13/2013 Mariola Alejo NP [address] [place] [address], [address], [facility] 18:28:39 On examinat ion - a rash Completed 03/16/2011 Not Available [facility] 3 03:12:13 Abnormal weight loss 715140659 Completed 04/13/2013 Mariola Alejo NP [address] [place] [address], [address], [facility] 18:28:39 Benign hyperten sive heart disease 47723257 Completed 03/16/2011 Not Available [facility] 3 03:12:13 Herpes zoster 3720715 Completed 200303/16/2011 Not Available [facility] 3 03:12:13 Osteopor osis 49377970 Active 2005 Mariola Alejo NP [address] [place] [address], [address], [facility] 20:50:33 Menopaus al symptom 10412078 Completed 200303/16/2011 Not Available [facility] 3 03:12:13 Low back pain 252194430 Active Not Available [facility] 3 03:12:13 Chronic allergic conjunct ivitis 73855389 Completed 200603/16/2011 Not Available [facility] 3 03:12:13 Pain in limb 40359114 Completed 200603/16/2011 Not Available [facility] 3 03:12:13 Problem Notes None recorded. Procedures Surgical History Date Name Laterality Status Provider Name and Address Organization Details Recorded Time 05/27/20 19 Refraction completed Yaneth Sorenson [facility] ([place] [place]) 05/26/2019 16:40:35 10/02/19 19 Medicare Wellness Visit completed Giulia Padilla MA [facility] ([place] [place]) 10/01/2018 13:37:31 10/02/19 19 POC Urinalysis Testing completed Giulia Padilla MA [facility] ([place] [place]) 10/01/2018 14:26:19 10/02/19 19 Advanced Care Planning completed Jessy Lira, [employer] [address] [place], [address], [facility] 10/01/2018 14:51:32 06/04/20 [address]690: Therapeutic Exercise completed Dorene Frausto, PT [address] [place], [address], [facility] 06/04/2018 09:27:47 06/04/20 18 13644: Manual Therapy completed Dorene Frausto, PT [address] [place], [address], [facility] 06/04/2018 09:27:52 05/25/20 18 Refraction completed Nava Grace [facility] [place] 05/25/2018 11:08:38 05/15/20 18 74602: Therapeutic Exercise completed Dorene Frausto, PT [address] [place], [address], [facility] 05/15/2018 10:04:25 05/15/20 18 54030: Manual Therapy completed Dorene Frausto, PT [address] [place], [address], [facility] 05/15/2018 10:04:29 05/07/20 18 23593: Therapeutic Exercise completed Dorene Frausto, PT [address] [place], [address], [facility] 05/09/2018 19:15:49 05/07/20 78095: Manual Therapy completed Dorene Frausto, PT [address] [place], [address], [facility] 05/09/2018 19:15:54 10/15/20 18 Wound Care completed Katherine Rivas LPN [facility] ([place] [place]) 05/04/2018 14:27:58 05/04/20 18 Physical Activity Counselling completed Dorene Frausto, PT [address] [place], [address], [facility] 05/06/2018 08:45:31 05/04/20 18 50025: PT Eval Low Complexity completed Dorene Frausto, PT [address] [place], [address], [facility] 05/06/2018 08:45:27 05/22/20 17 [facility] 11:34:20 05/06/20 17 Medicare Wellness Visit completed Starr Humphrey [facility] 05/06/2017 10:27:43 09/10/19 17 Medicare Risk for Falls Screen completed Nati [facility] 09/10/2016 09:38:44 07/17/20 16 Trigger Finger Injection RB completed Mika Solitario MD PhD [address] [place], [address], [facility] 07/17/2016 10:11:42 05/02/20 16 Medicare Wellness Visit completed Arina Shabazz [facility] [place] 05/02/2016 10:39:25 04/09/20 16 Refraction completed Monique Rascon [facility] [place] 04/09/2016 09:07:58 04/11/20 15 Medicare Wellness Visit completed Zaira Rosario MA [facility] [place] 04/11/2015 10:12:45 04/07/20 14 Medicare Wellness Visit completed Zaira Rosario [facility] 04/07/2014 10:59:31 12/15/19 14 Current <strong>Medication s</strong> Documented (G8427) completed Aria Baez, OT [address] [place], [address], [facility] 12/14/2013 15:00:47 12/10/19 14 <strong>Pain</stro ng> Assessment and Follow-up (G8730) completed Aria Baez, OT [address] [place], [address], [facility] 12/09/2013 14:41:53 12/10/19 14 <strong>Falls</str que> Risk Assessment - No Risk (1101F) completed Aria Baez, OT [address] [place], [address], [facility] 12/09/2013 14:41:53 12/10/19 14 <strong>BMI</stron g> Normal - No Follow-up Required (G8420) completed Aria Baez, OT [address] [place], [address], [facility] 12/09/2013 14:41:53 12/10/19 14 Current <strong>Medication s</strong> Documented (G8427) completed Aria Baez, OT [address] [place], [address], [facility] 12/09/2013 14:41:53 08/27/19 14 Corticosteroid Injection completed Nino Norris MD [address] [place], [address], [facility] 08/27/2013 11:10:37 03/18/20 12 Medicare Wellness Visit completed Zaira Rosario MA [facility] [place] 03/18/2012 11:02:01 01/23/20 11 Medicare Annual Wellness Visit completed Zaira Rosario MA [facility] [place] 01/22/2011 14:53:10 01/23/20 11 Medicare Risk for Falls Screen completed Zaira Rosario MA [facility] [place]) 01/22/2011 14:53:10 01/23/20 11 Advanced Care Planning completed Zaira Rosario MA [facility] [place]) 01/22/2011 14:53:10 05/01/20 10 Treatment and Advice completed Nan Bright, PT [address] [place], [address], [facility] 05/01/2010 08:54:03 04/24/20 10 Treatment and Advice completed Nan Bright, PT [address] [place], [address], [facility] 04/24/2010 07:33:25 Imaging Results None recorded. Procedure Notes None recorded. Medical Equipment None Reported. Allergies No known drug allergies Medications Name Sig Start Date Stop Date Status Note LastModified by Organization Details LastModified Time calcium 600/vitam in d3 600-800 mg-unit tabs active Not Available Not Available Not Available vitamin d 1000iu softgels f/n TK 1 C PO QD 02/18 completed Not Available Not Available Not Available vitamin d 1000iu softgels f/n 100's TK 1 C PO QD active Not Available Not Available No t Available vitamin d 1000iu softgels fn 100s TK 1 C PO QD active Not Available Not Available No t Available Prescript ion - New 02/18 completed bilatera l thumb spica splints Not Available Not Available Not Available amoxicill in 500 mg capsule TK 2 TS PO Q 12 H FOR 14 DAYS active Not Available Not Available No t Available ibuprofen 800 mg tablet 07/29 completed Not Available Not Available Not Available clarithro mycin 500 mg tablet Take 1 tablet every 12 hours by oral route for 14 days. 08/16 completed Not Available Not Available Not Available atovaquon e 250 mg-progua nil 100 mg tablet active Not Available Not Available No t Available simvastat in 10 mg tablet TAKE 1 TABLET BY MOUTH EVERY DAY 2011 active Request called in by Victoriano caldera pharmaci for patient for 90 day fill Not Available Not Available Not Available amlodipin e 2.5 mg tablet TAKE 1 TABLET BY MOUTH EVERY DAY active Not Available Not Available No t Available prochlorp erazine maleate 10 mg tablet active Not Available Not Available Not Available ciproflox acin 500 mg tablet active Not Available Not Available No t Available omeprazol e 40 mg capsule,d elayed release TAKE 1 CAPSULE BY MOUTH EVERY DAY active Not Available Not Available No t Available acetamino phen 500 mg tablet TAKE 1 TABLET BY MOUTH EVERY 6 HOURS NEEDED active Not Available Not Available No t Available amoxicill in 500 mg tablet Take 2 tablets every 12 hours by oral route for 14 days. 08/16 completed Not Available Not Available Not Available losartan 100 mg-hydroc hlorothia zide 25 mg tablet TAKE 1 TABLET BY MOUTH EVERY DAY active Not Available Not Available No t Available amoxicill in 875 mg tablet active Not Available Not Available Not Available prednisol one acetate 1 % eye drops,john pension active Not Available Not Available Not Available benzonata te 100 mg capsule TK 1 C PO TID FOR 10 DAYS PRN 05/06 completed Not Available Not Available Not Available cephalexi n 500 mg capsule Take 1 capsule every 6 hours by oral route for 7 days. 10/01 completed Not Available Not Available Not Available simvastat in 20 mg tablet TK 1 T PO QHS active Not Available Not Available No t Available ranitidin e 300 mg capsule Take 1 capsule every day by oral route before meals for 90 days. 07/29 completed Not Available Not Available Not Available Aerochamb er with Flowsigna l 2007 active Take 1.00 ea as directed Not Available Not Available Not Available sertralin e 25 mg tablet TAKE 1 TABLET BY MOUTH EVERY DAY active Not Available Not Available No t Available omeprazol e 20 mg capsule,d elayed release TK 1 C PO QD active Not Available Not Available No t Available lisinopri l 20 mg-hydroc hlorothia zide 25 mg tablet TK 1 T PO QD active Not Available Not Available No t Available bisacodyl 5 mg tablet,de layed release TK ALL 4 TABLETS BY MOUTH WITH 8 OUNCES OF WATER ON THE DAY BEFORE PROCEDUR E active Not Available Not Available No t Available lisinopri l 5 mg tablet TAKE 1 TABLET BY MOUTH EVERY DAY 2011 active Not Available Not Available Not Avai lable hydrochlo rothiazid e 25 mg tablet TAKE 1 TABLET BY MOUTH EVERY DAY active Not Available Not Available No t Available lisinopri l 10 mg-hydroc hlorothia zide 12.5 mg tablet TK 1 T PO QD active Not Available Not Available No t Available ibuprofen 600 mg tablet TAKE ONE TABLET BY MOUTH THREE TIMES DAILY active Not Available Not Available No t Available albuterol sulfate HFA 90 mcg/actua tion aerosol inhaler 2007 active Take 2.00 puffs 4 times a day Not Available Not Available Not Available betametha sone dipropion ate 0.05 % topical ointment FIFI THIN LAYER EXT AA QD active Not Available Not Available No t Available losartan 100 mg tablet TAKE ONE TABLET BY MOUTH ONCE DAILY active Not Available Not Available No t Available lisinopri l 2.5 mg tablet TAKE 1 TABLET BY MOUTH EVERY DAY 2009 active pha 11/27 Not Available Not Available Not Avai lable naproxen 500 mg tablet TK 1 T PO BID PRN 11/06 completed Not Available Not Available Not Available cholecalc iferol (vitamin D3) 25 mcg (1,000 unit) capsule TK ONE C PO QD active Not Available Not Available No t Available Actonel 35 mg tablet TAKE 1 TABLET BY MOUTH EVERY WEEK 2011 active Request called in by Victoriano caldera [facility] for patient for 90 day fill. Not Available Not Available Not Available Mapap Arthritis Pain 650 mg tablet,ex tended release Take 2 tablets twice a day by oral route as needed. active Not Available Not Available No t Available cyclobenz aprine 5 mg tablet TK 1 T PO QD PRN 05/06 completed Not Available Not Available Not Available Zostavax (PF) 19,400 unit/0.65 mL subcutane ous suspensio n Inject 0.65 mL by subcutan eous route. 05/02 completed Not Available Not Available Not Available omeprazol e 20 mg tablet,de layed release TK 1 T PO QD 11/06 completed Not Available Not Available Not Available diclofena c 1 % topical gel APPLY 8 GRAMS TO AFFECTED AREA(S) ON THUMB TWICE DAILY NEEDED active Not Available Not Available No t Available Systane Ultra 0.4 %-0.3 % eye drops 1 drop into each eye 4 times per day as needed for dry eyes 2018 active Not Available Not Available Not Avai lable GaviLyte- G 236 gram-22.7 4 gram-6.74 gram-5.86 gram oral solution active Not Available Not Available Not Available calcium 600 mg (as carbonate )-vitamin D3 20 mcg (800 unit) tablet TAKE 1 TABLET BY MOUTH TWICE DAILY active Not Available Not Available No t Available Fluzone High-Dose Quad 2020-21 (PF) 240 mcg/0.7 mL IM syringe PHARMACY ADMINIST ERED active Not Available Not Available No t Available Vitals Date Recorded Body height Body mass index (BMI) Body weight Oxygen saturation Oxygen saturation in Arterial blood by Pulse oximetry Heart rate Systolic blood pressure Diastolic blood pressure Provider Name and Address Organization Details Last Updated DateTime 9 150.495 cm 30.5 kg/m2 20357.1 4 g 98 % 98 % 68 /min 134 mm[Hg] 80 mm[Hg] Giuliaterra Scottjaskaran [facility] 9 13:53:45 Date Recorded Body height Body mass index (BMI) Body weight Heart rate Systolic blood pressure Diastolic blood pressure Systolic blood pressure Diastolic blood pressure Provider Name and Address Organization Details Last Updated DateTime 9 150.495 cm 30.1 kg/m2 66815.2 6 g 60 /min 138 mm[Hg] 96 mm[Hg] 132 mm[Hg] 90 mm[Hg] Klever Lester [facility] 9 10:30:15 Date Recorded Systolic blood pressure Diastolic blood pressure Provider Name and Address Organization Details Last Updated DateTime 04/07/2019 158 mm[Hg] 90 mm[Hg] Jessy Lira, PA [address] [place] [address], [address], [facility] ([place], [place]) 04/07/2019 10:54:05 Date Recorded Heart rate Systolic blood pressure Diastolic blood pressure Provider Name and Address Organization Details Last Updated DateTime 05/05/2019 75 /min 143 mm[Hg] 76 mm[Hg] [facility]/05[facility]2019 10:08:30 Social History Question Answer Notes LastModified by Organizat ion Details LastModified Time Tobacco Smoking Status Never Smoker Not Available [facility] 06/06/2011 04:53:49 What Is Your Level Of Alcohol Consumption? None Information not available 12/03/2013 What Type Of Diet Are You Following? REGULAR Information not available 04/11/2015 Which Illicit Or Recreational Drugs Have You Used? Denies chey Information not available 05/06/2017 What Is Your Occupation? Retired From [employer] Information not available 05/06/2017 How Many Days In The Past Year Have You Had A Heavy Drinking Consumption (4+ Female, 5+ Male)? 0 Information not available 04/11/2015 Live Alone Or With Others? With Others Son & His Family Information not available 10/01/2018 Patient Has Health Care Proxy Signed And In Chart Yes Information not available 10/02/2018 CCM Consent Discussion 09/10/2016 Information not available 09/10/2016 Marital Status Informatio n not available 10/01/2018 What Was The Date Of Your Most Recent Tobacco Screening? 10/01/2018 Information not available 02/10/2019 How Many Children Do You Have? 2 Information not available 06/06/2011 Seat Belts Used Routinely Yes 17 Information not available 06/06/2011 Smoke Alarm In Home Yes Information not available 06/06/2011 General Stress Level Low [email or web address] Information not available 04/11/2015 Sex: Unknown Functional Status None recorded. Mental Status None recorded. Family History Relationship Description Onset Age of this Age Resolved Age Notes LastModified by Organization Details LastModified Time Father Hypertensive disorder [email or web address] Not available 04/21 11:38:16 Notes:brother d 55 - ?stomac h problem Medical History Condition Response Hypertension Y Osteoporosis Y Gynecological HistoryNo gynecological history recorded. Obstetrics History GPAL:G 0 P 0 0 0 0 Immunizations Vaccine Type Date Status Note Provider Nam e and Address Organization Details Recorded Time Influenza, split virus, trivalent, preservative 1 completed Not Available [facility] 08/07/2019 02:18:13 Td(adult) unspecified formulation 5 completed Not Available [facility] 06/05/2011 05:21:07 Influenza, split virus, trivalent, preservative 2 completed Not Available [facility] 08/07/2019 02:28:10 pneumococcal polysaccharide PPV23 3 completed Not Available [facility] 08/07/2019 02:14:35 Influenza, high-dose, trivalent, PF 4 completed Not Available [facility] 08/07/2019 02:33:41 Pneumococcal conjugate PCV 13 6 completed Not Available [facility] 08/07/2019 02:20:17 zoster live 6 completed Not Available [facility] 08/07/2019 02:29:20 Influenza, split virus, trivalent, preservative 3 [facility] 11:24:31 Influenza, high-dose, trivalent, PF 6 completed Not Available [facility] 08/07/2019 02:21:03 Influenza, high-dose, trivalent, PF 7 completed Not Available [facility] 08/07/2019 02:22:04 Tdap 5 [facility] ANDREY willis, [facility] ([place], [place]) 09/06/2014 08:57:15 Hep A, adult 5 completed October [facility]. ANDREY willis, [facility] ([place], [place]) 09/06/2014 08:57:15 typhoid, unspecified formulation 5 completed [facility]. ANDREY willis, [facility] ([place], [place]) 09/06/2014 08:57:15 Influenza, high-dose, trivalent, PF 8 completed Not Available [facility] 08/07/2019 02:32:28 Influenza, high-dose, trivalent, PF 9 completed Not Available [facility] 08/07/2019 02:24:04 Influenza, split virus, trivalent, preservative 0 completed Not Available [facility] 08/07/2019 02:17:47 Past Encounters Encounter ID Performer Location Encounter Start Date Encounter Closed Date Diagnosis/Indication Diagnosis SNOMED-CT Code Diagnosis ICD10 Code Diagnosis Note [id number] [facility], OFFICE [address] [place] [address] 12/22/2003 11:15:34 12/23/2003 08:54:34 [id number] LAB - [facility] [address] [place] [address] 12/23/2003 08:25:14 12/23/2003 08:27:31 [id number] [facility], OFFICE [address] [place] [address] 12/29/2003 08:39:08 12/29/2003 11:41:39 [id number] Radiology , [address] [address] 01/27/2004 10:29:25 08/10/2008 02:02:29 [id number] [facility] , [address] [address] 01/27/2004 00:00:00 08/10/2008 02:02:29 [id number] Radiology , [address] [address] 01/30/2004 09:04:59 08/10/2008 02:02:29 [id number] Radiology , [facility] [address] [place] [address] 01/30/2004 00:00:00 08/10/2008 02:02:29 [id number] FP, [facility], OFFICE [address] [place] [address] 03/09/2004 08:22:28 03/12/2004 08:21:57 [id number] FP, [facility], OFF[address] [place] [address] 04/09/2004 17:19:08 04/10/2004 09:37:02 [id number] FP, [facility], OFF[address] [place] [address] 04/12/2004 07:36:01 04/12/2004 14:10:00 [id number] FP, [facility], OFFICE [address] [place] [address] 01/11/2005 10:01:08 01/11/2005 13:28:36 [id number] LAB - [facility] 70 [facility] [place] [address] 01/14/2005 08:44:22 01/14/2005 08:44:37 [id number] Radiology , [facility] [address] [place] [address] 01/11/2005 10:48:18 01/14/2005 10:03:57 [id number] , [facility], OFFICE [address] [facility] [place] [address] 01/11/2005 00:00:00 08/10/2008 02:02:29 [id number] , [facility], OFFICE [address] [facility] [place] [address] 01/25/2005 07:31:36 01/25/2005 10:20:32 [id number] , [facility], OFFICE [address] [facility] [place] [address] 02/26/2005 07:28:39 02/27/2005 12:29:49 [id number] Radiology , [facility] 70 [facility] [place] [address] 02/26/2005 07:52:49 08/10/2008 02:02:29 [id number] LAB - [facility] 70 [facility] [place] [address] 04/15/2005 08:36:27 04/15/2005 08:36:44 [id number] Eye Care, [facility] [address] [place] Hernandez[address] 6 02/26/2005 08:51:16 02/27/2005 09:32:28 [id number] , [facility], OFFICE [address] [place] GARCIA[address] 6 07/29/2005 07:28:09 08/10/2008 02:02:29 [id number] , [facility], OFFICE [address] [place] [id number] 6 08/19/2005 07:47:27 08/10/2008 02:02:29 [id number] LAB - [facility] [address] [place] Hernandez62[address] 6 08/19/2005 08:03:41 08/19/2005 08:03:58 [id number] [facility], OFFICE [address] [id number] 6 12/04/2005 08:03:21 12/04/2005 10:57:34 [id number] LAB - [facility] [address] [place] Hernandez62[address] 6 12/04/2005 08:25:16 12/04/2005 08:25:28 [id number] Radiology , [facility] [address] [place] Hernandez62[address] 6 03/21/2006 09:59:54 08/10/2008 02:02:29 [id number] Radiology , [facility] 70 [place] Hernandez62[address] 6 05/13/2006 11:44:30 08/10/2008 02:02:29 [id number] , [facility], OFFICE [address] [place] [address] 05/13/2006 10:52:51 05/14/2006 10:40:56 [id number] , [facility], OFFICE [address] [place] [address] 06/10/2006 10:42:34 06/10/2006 14:11:11 [id number] , [facility], OFFICE [address] [place] [address] 07/24/2006 11:03:13 07/24/2006 14:27:30 [id number] , [facility], OFFICE [address] [place] [address] 07/28/2006 13:01:19 07/28/2006 16:18:52 [id number] [facility], OFFICE [address] [place] [address] 08/28/2006 10:54:47 08/28/2006 13:28:58 [id number] Optical, [facility] [address] [place] 6 09/12/2006 11:58:51 09/12/2006 16:42:49 [id number] Eye Care, [facility] P[place] [id number] 6 09/12/2006 10:09:43 09/12/2006 11:27:22 [id number] Radiology , [facility] PADMAJA [id number] 6 02/04/2007 08:33:07 02/05/2007 09:13:05 [id number] FP, [facility], OFFICE [address] [facility] [id number] 6 02/17/2007 08:09:52 02/17/2007 09:56:32 [id number] Radiology , [address] [place] 02/17/2007 09:07:13 02/18/2007 09:14:54 [id number] LAB - [address] [place] 02/17/2007 08:46:26 02/17/2007 08:46:33 [id number] [facility], OFFICE [address] [facility] [address] 04/03/2007 11:50:06 04/10/2007 08:53:04 [id number] Radiology , [address] [place] [address] 05/20/2007 14:24:14 05/21/2007 08:38:47 [id number] Optical, [address] [place] [address] [id number] Eye Care, [address] [place] [address] 10/12/2007 10:51:22 10/14/2007 09:50:24 [id number] , [facility], OFFICE [address] [facility] [address] 11/19/2007 10:59:36 08/10/2008 02:02:29 [id number] , [facility], OFFICE [address] [facility] [address] 12/07/2007 09:55:00 08/10/2008 02:02:29 [id number] LAB - [address] [place] [address] 01/13/2008 07:47:59 01/13/2008 07:48:04 [id number] , [facility], OFFICE [address] [place] [id number] 6 03/22/2008 08:54:22 08/10/2008 02:02:29 [id number] LAB - [facility] 70 [place] Hernandez62[address] 6 03/22/2008 09:38:05 03/22/2008 09:38:12 [id number] [facility], OFFICE [address] [place] [id number] 6 08/12/2008 09:38:19 08/23/2008 02:02:00 [id number] Radiology , [facility] 70 [place] [id number] 6 08/24/2008 13:02:03 08/25/2008 09:22:02 [id number] [facility], OFFICE [address] [place] [id number] 6 09/09/2008 07:57:12 09/13/2008 13:36:30 [id number] Radiology , [facility] 70 [place] [id number] 6 09/09/2008 08:51:06 09/09/2008 12:56:34 [id number] [facility], OFFICE [address] [facility] [place] [address] 09/20/2008 09:29:23 09/23/2008 11:19:38 [id number] Radiology , [facility] 70 [place] [id number] 6 02/08/2009 09:29:27 02/13/2009 13:57:49 [id number] LAB - [facility] [address] [place] [address] 08/12/2008 10:11:32 08/12/2008 10:11:40 [id number] [facility], OFFICE [address] [facility] [place] [address] 06/20/2009 14:08:44 06/23/2009 08:25:43 [id number] Radiology , [facility] 70 [place] Hernandez62[address] 6 12/06/2009 10:53:50 12/07/2009 11:19:25 [id number] , [facility], OFFICE [address] [facility] [place] [address] 12/15/2009 11:30:58 12/15/2009 12:56:51 [id number] , [facility], OFFICE [address] [place] [address] 04/17/2010 09:17:15 04/19/2010 12:32:13 [id number] Physical Therapy, [address] [place] [address] 04/24/2010 07:07:41 04/25/2010 08:51:09 [id number] Physical Therapy, [address] [address] 05/01/2010 08:50:55 05/01/2010 10:10:22 [id number] Physical Therapy, [address] [address] 05/08/2010 12:07:29 05/08/2010 15:30:50 [id number] Radiology , [address] [address] 12/11/2010 09:20:57 12/12/2010 11:25:59 [id number] CASEY [facility], OFFICE [address] [place] [address] 12/20/2010 09:23:51 12/24/2010 08:15:58 [id number] [facility], OFFICE [address] [place] [address] 01/22/2011 13:50:17 01/23/2011 08:30:52 [id number] Radiology , [address] [address] 03/07/2011 09:28:14 03/08/2011 11:59:02 [id number] CASEY [facility], OFFICE [address] [place] [address] 05/01/2011 11:20:21 05/02/2011 08:22:58 [id number] Radiology , [facility] [address] [place] [address] 12/23/2011 10:02:45 12/24/2011 09:05:48 [id number] PADMAJA Scherer [facility], OFFICE [address] [place] [address] 03/18/2012 09:48:59 03/18/2012 14:59:46 [id number] PA Suh [facility], OFFICE [address] [place] [address] 11/18/2012 09:20:15 11/18/2012 10:00:37 [id number] Karla PEÑA [facility], OFFICE [address] [place] [address] 11/27/2012 11:31:48 11/30/2012 11:27:06 [id number] Mariola Alejo NP , [facility], OFFICE [address] [place] [address] 01/20/2013 07:23:02 01/20/2013 08:26:03 [id number] Zaira RosarioPADMAJA , [facility], OFFICE [address] [place] [address] 05/18/2013 10:53:34 05/18/2013 11:56:40 Benign essential hypertension 1821447 Blood pressure close to goal 140/90. Cont to enc regular med dosing, lower sodium diet. Degenerati ve joint disease involving multiple joints Will recheck ESR to r/o PMR. Likely OA, renal function is intact and will trial naproxen to see if she is afforded some relief. COnsder rheum consult. Mixed hyperlipidemia [id number] Osteoporosis [id number] Nino Norris MD , [facility], OFFICE [address] [place] [address] 07/30/2013 08:41:45 07/30/2013 09:20:14 Burning epigastric pain 32265173 Epigastric burning without significan t pain. No clinical evidence of acute abdomen. Tried H2 blockers without much improvemen t. Advised to start PPI (risk of long-term use discussed given her underlying history of osteoporos is). Advised to stop Naproxen and use Acetaminop hen for arthritic pain. Guaiac negative, brown stool today. Check Stool H. pylori antigen. Follow up in 1 month or sooner if worsening symptoms. Indication s for UC/ER use discussed. [id number] Mariola Alejo NP , [facility], OFFICE [address] [place] [address] 08/27/2013 10:04:34 08/27/2013 11:06:10 Helicobacter-associat ed gastritis 91882199 Marked improvemen t of her gastritis symptoms. Denies any evidence of GI bleeding. No clinical evidence of acute abdomen. No current abdominal pain. No food intoleranc e issues. Tendinitis [id number] Maria Guadalupe ent with right-side d DeQuervain 's tenosynovi tis. Reports using her hands frequently for cooking. After reviewing the risks, benefits and alternativ e, she wished to proceed with corticoste roid injection. Medication administer ed using a sterile technique. Advised to monitor for any worsening symptoms. Also advised to report any issues with fever, chills, bleeding, swelling or increased pain. Benign ess ential hypertension 8457565 Requesting a refill. BMP within normal (04/2013). Continue current medication and low salt diet. BP within normal. Mixed hyperlipidemia 319058992 Continue her current medication and low fat/choles terol diet. Schedule for a PHA visit in 2-3 months. Osteoporosis 54879136 Co ntinue Vitamin D. [id number] , [facility], OFFICE [address] [place] [address] 12/03/2013 11:00:29 12/07/2013 14:30:06 Hand joint pain 024127449 Referral to PT/OT. Tylenol - may alternate with ibuprofen prn - with food. Consider rheumatolo gy referral Again advise pt to bring full stack net developer to next appt [id number] Physical Therapy, [facility] [address] [place] [address] 12/09/2013 11:40:48 12/10/2013 14:21:54 Hand joint pain 055144712 [id number] Aria Baez OT Physical Therapy, [facility] [address] [place] [address] 12/14/2013 14:11:48 12/14/2013 15:29:19 Hand joint pain [id number] Mariola Alejo NP , [facility], OFFICE [address] [place] [address] 04/07/2014 09:53:28 04/07/2014 12:24:34 Adult health examination [id number] see Risk Assessment and Lifestyle Change Counseling section above Counseling [id number] Mixed hyperlipidemia 702936216 Cholestero l is at goal Continue to work on diet and exercise as discussed Benign ess ential hypertension 4769712 Blood pressure NOT at goal. Pt states did not take todays meds yet Unclear compliance . Will talk with son re importance of regular dosing Degenerati ve joint disease involving multiple joints Will recheck ESR to r/o PMR. Likely OA, renal function is intact and will consider meloxicam or celebrex to see if she is afforded some relief. COnsder rheum consult. [id number] PA Suh, [facility], OFFICE [address] [place] [address] 06/08/2014 07:04:43 06/08/2014 07:52:20 Benign essential hypertension 4061203 Blood pressure at goal. Taking meds regularly Will order BP cuff to improve compliance Mixed hyperlipidemia 257287231 Cholestero l is at goal Continue to work on diet and exercise as discussed Dizziness 843442740 uncl ear etiology will check labs to r/o anemia due to hemoccult + stools enc increased fluid intake Occult blo od detected in feces 59889471 Has GI apt 06/21 Will check CBC today Influenza vaccine needed [id number] CASEY, [facility], OFFICE [address] [place] [address] 08/30/2014 10:49:34 08/30/2014 11:43:20 Benign essential hypertension 6023199 Blood pressure at goal Gastroesop hageal reflux disease 509257988 Muscle pain 81910177 Mixed hyperlipidemia 994789559 stop statin for now to see if muscle pain improves check labs [id number] PA Suh, [facility], [address] [place] [address] 11/08/2014 13:39:18 11/08/2014 14:08:30 Mixed hyperlipidemia 679227262 stable off statin and muscle pain decreased continue to monitor Benign ess ential hypertension 9806078 Blood pressure at goal Gastroesop hageal reflux disease 934869862 stable on med Hand joint pain 833590045 SL improved- suggest Aspercreme or Arnica. Again advise pt to bring full stack net developer to next appt [id number] PA Suh, [facility], [address]ICE [address] [place] [address] 04/11/2015 10:07:03 04/11/2015 10:59:24 Adult health examination 558976465 see Risk Assessment and Lifestyle Change Counseling section above Counseling [id number] Benign ess ential hypertension 9419585 not at goal Mixed hyperlipidemia 305083719 stable off statin and muscle pain decreased continue to monitor Gastroesop hageal reflux disease 819122245 stable on med Osteopenia 448598389 [id number] PA Suh, [facility], [address] [place] [address] 10/10/2015 09:58:04 10/10/2015 10:48:26 Screening mammography 65430524 Z12.31 Benign ess ential hypertension 7066718 I10 not at goal - discussed need to take med in AM daily, even if fasting labs try to take BP away from office and report high readings no med changes today Active or passive immunization 375703993 Z23 Osteoporosis 29622868 M8 1.0 stable walking for exercise, taking vitamin D Varicella vaccination 68 266072 Z23 [id number] Martha Wong, OD Eye Care, [facility] [address] [place] [address] 04/09/2016 08:49:22 04/09/2016 09:52:47 Dry eyes 096120214 H04.129 by history, continue AT d prn Retinal la ttice degeneration 5193797 H35.412 no holes; pt ed, discussed symptoms of retinal detachment , pt instructed to RTC angelica if occurs. Pseudophakia 87285844 Z9 6.1 OU; clear, observe Myopia 31969787 H52.13 [id number] Fariba Douglas NP , [facility], [address] [place] [address] 05/02/2016 10:11:34 05/02/2016 11:32:31 Adult health examination 380571495 Z00.00 see Risk Assessment and Lifestyle Change Counseling section above Counseling 043051737 Z71 .9 Trigger finger 212643692 1 82353 M65.30 mild, L middle. will try ice and ibuprofen Impairment of balance 38 3997545 R26.89 walk with cane and schedule with PT Active or passive immunization 071584075 Z23 Benign ess ential hypertension 7472099 I10 BP at goal of <140/90, continue current medication s, tolerating well [id number] , [facility], [address] [place] [address] 07/12/2016 10:38:40 07/12/2016 11:06:38 Hand pain 55612465 M79.642 -xray pending-wi ll speak to Dr Altaf rivera to see when they could schedule the patient for ?injection -Follow up with PCP as needed Benign ess ential hypertension 4971457 I10 refilled she needs more than a month supply for her travels Osteoporosis 61800439 M8 1.0 refilled she needs more than a month supply for her travels [id number] Mika Solitario MD PhD Rheumatol maynor, [facility] [address] [place] [address] 07/17/2016 07:54:27 07/17/2016 11:24:51 Trigger finger 6035265485 50664 M65.30 trigger finger of left 3rd digit. Steroid injection. Subacromial bursitis 407 37129 M75.51 possible right subacromia l bursitis. she declined steroid injection and encourage exercises. instructio n was given. Osteoarthr itis of multiple joints 977115322 M15.9 typical OA changes consistent with X-ray findings. encourage exercises and instructio n was given. [id number] Jessy Lira NP FP, [facility], OFFICE [address] [place] [address] 07/29/2016 16:02:31 07/29/2016 16:51:08 Low back pain 415039458 M54.5 [id number] PA Nuno, [facility], OFFICE [address] [place] [address] 07/30/2016 10:20:58 07/30/2016 11:17:51 Low back pain 868870990 M54.5 [id number] VLADIMIR Polanco, [facility], [address] [place] [address] 09/10/2016 08:45:33 09/10/2016 10:11:10 Benign essential hypertension 0902799 I10 -at baseline on medication -follow up in october for DM appt.-labs prior to the appt. Degenerati ve joint disease involving multiple joints 670855092 M15.9 -pain resolved-i nstructed to stop omeprezole , naproxen, and cyclobenza pine. Use the pain medication as needed-the trigger finger resolved after the steroid injection [id number] VLADIMIR Polanco , [facility], OFFICE [address] [place] [address] 11/06/2016 09:19:29 11/06/2016 09:47:57 Benign essential hypertension 9764792 I10 -Blood pressure at goal on medication -bmp normal Osteoporosis 95299575 M8 1.0 refilled Low back pain 971240558 M54.5 rx given for walkerrefi lled muscle relaxant Degenerati ve joint disease involving multiple joints M15.9 -pain resolved-t he trigger finger resolved after the steroid injection [id number] Arminda Rodriguez PA-C , [facility], [address] [place] [address] 02/18/2017 16:05:41 02/18/2017 16:53:03 Cough 65369179 R05 - viral URI versus acid reflux- cough medicine for the next week as needed- return to office if not resolved in one week, or if develop a fever Heartburn 37884010 R12 - Take omeprazole 30 minutes before breakfast on an empty stomach- Avoid triggers such as tobacco, alcohol, caffeine, spicy foods, etc- Do not lie down for at least two hours after eating- Avoid over eating [id number] VLADIMIR Polanco , [facility], [address] [place] [address] 05/06/2017 10:01:13 05/06/2017 11:25:26 Adult health examination 075771065 Z00.00 see Risk Assessment and Lifestyle Change Counseling section above Counseling 967678122 Z71 .9 Healthy lifestyle changes may help you feel better. Get at least 30 minutes of exercise on most days of the week. Walking is a good choice. Eat a healthy diet. Include fruits, vegetables , lean proteins, and whole grains in your diet each day. Keep a regular sleep schedule. Try for 8 hours of sleep a night. Find ways to manage stress, such as relaxation exercises, 4-7-8 breathing exercise. Avoid alcohol and illegal drugs; Avoid caffeine if having trouble w/ sleeping. -healthcar e proxy and molst pending till next visiting-m ammo and colonoscop y are up to date Benign ess ential hypertension 4920834 I10 Not at goal; goal is <150/90cal led Son and he will get her medication as well. Active or passive immunization 784526414 Z23 updated Osteoporosis 16603880 M8 1.0 refilled for the year Low back pain 408205749 M54.5 -staff will call in regards to walker-tyl enol 500mg every 4 hours as needed for pain-will consider PT if needed [id number] VLADIMIR Polanco, [facility], OFFICE [address] [place] [phone] 05/21/2017 09:50:28 05/21/2017 10:27:59 Low back pain [id number] M54.5 awaiting walkertyle nol ER as needed for painarnica gel and muscle rub to the areas of pain-follo w up for worsening pain-pendi ng bone scan Osteoporosis 77814648 M8 1.0 bone scan pending tomorrow Benign ess ential hypertension 8435242 I10 -at goal is <150/90-co ntinue lisinopril /HCTZ-watc h your salt in your diet [id number] Martha Wong, OD [facility], [facility] [address] [place] [address] 05/22/2017 10:26:43 05/22/2017 12:41:56 Myopia 78149179 H52.13 Dry eyes 086988882 H04.1 29 by history, continue AT qid prn Retinal la ttice degeneration 4281939 H35.412 no holes; pt ed, discussed symptoms of retinal detachment , pt instructed to RTC angelica if occurs. monitor annually. Pseudophakia 87757441 Z9 6.1 OU; clear, observe [id number] PA Nuno, [facility], OFFICE [address] [place] [address] 08/29/2017 17:26:55 09/01/2017 10:07:42 Gastroesophageal reflux disease 755930205 K21.9 Benign ess ential hypertension 7577044 I10 well-contr olled on lisinopril -HCTZ [id number] Iris VLADIMIR Mcmullen, [facility], OFFICE [address] [place] [phone] 04/13/2018 09:58:37 04/13/2018 10:36:45 Active or passive immunization 912513303 Z23 Agreeable to vaccine today. Pain in thumb 781786508 M79.642 Left thumb pain and limitation in ROM found in a 77 y/o female w/ a Hx of degenerati ve joint disease, presentati on suspicious for trigger finger. Pt will have imaging taken today.Cons ider rheum referral for injection. Pain of ri ght shoulder joint [id number] 9508433 M25.511 Pain in right shoulder likely secondary to an etiologica l combinatio n of joint and muscle issues. Pt seeing some relief with stretching . Recommende d PT referral to continue gains. Pt encouraged to f/u if sxs change or worsen. [id number] Dorene Frausto PT Physical Therapy, [address] [address] 05/04/2018 12:07:49 05/06/2018 10:51:56 Shoulder pain 64278888 M25.369 [id number] Jimena Amin , [facility], OFFICE [address] [place] [phone] 6 05/04/2018 13:34:35 05/04/2018 14:34:18 Tear of skin 703687419 T14.8XXA See above plan Cellulitis 192290887 L03 .90 Will treat with Keflex 500mg every 6 hours x 7 days. Advised patient wash twice daily with soap and water, dress with bacitracin , non stick pad and bandage. Advised she avoid use of tumeric. Area of erythema circled with marking pen. She will monitor for signs, symptoms of worsening infection. Return in 3 days for close follow up. Pt co-evaluat ed with Miriam Kumar NP who agrees with above plan. [id number] Dorene Frausto PT Physical Therapy, [address] [address] 05/07/2018 09:30:50 05/11/2018 07:38:47 Shoulder pain 12368458 M25.871 [id number] Dorene Frausto PT Physical Therapy, [address] [address] 05/15/2018 09:28:38 05/15/2018 10:16:34 Shoulder pain 72563152 M25.319 [id number] Martha Wong, [facility], [facility] [address] [place] [address] 05/25/2018 10:05:40 05/25/2018 12:07:13 Myopia 52581605 H52.13 Dry eyes 382677861 H04.1 29 by history, continue AT qid prn Retinal la ttice degeneration 2704360 H35.412 no holes; pt ed, discussed symptoms of retinal detachment , pt instructed to RTC angelica if occurs. monitor annually. Pseudophakia 54396722 Z9 6.1 OU; clear OD, minimal PCO OS, not visually significan t, observe [id number] Dorene Frausto, PT Physical Therapy, [address] [address] 06/04/2018 08:40:46 06/04/2018 09:44:57 Shoulder pain 98471841 M25.398 [id number] Jessy Lira NP , [facility], OFFICE [address] [place] [phone] 10/01/2018 13:27:39 10/01/2018 16:57:21 Adult health examination 034904205 Z00.00 see Risk Assessment and Lifestyle Change Counseling section above Counseling 589018389 Z71 .9 Depression screening 171 509172 Z13.89 depression screening tool administer ed, entered into emr, scored and discussed, time greater than 7.5 minutes. Screening reviewed with pt. 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 [id number] , [facility], OFFICE [address] [place] [phone] 04/07/2019 09:46:35 04/08/2019 13:59:38 Degenerative joint disease involving multiple joints 195036046 M15.9 Benign ess ential hypertension 6390496 I10 Not at goal of under 130/80 on lisinopril -HCTZ Gastroesop hageal reflux disease 364149848 K21.9 [id number] Giulia Padilla MA , [facility], OFFICE [address] [place] [phone] 05/05/2019 09:34:35 05/05/2019 14:46:53 Active or passive immunization 926960050 Z23 [id number] Martha Wong, OD Eye Care, [facility] [address] [place] [address] 05/27/2019 10:24:08 05/27/2019 13:44:24 Myopia 07222183 H52.13 hold on glasses rx until sees ophthalmol ogist Dry eyes 934157664 H04.1 29 by history, continue AT d prn Retinal la ttice degeneration 4288467 H35.412 no holes; pt ed, discussed symptoms of retinal detachment , pt instructed to RTC angelica if occurs. monitor annually. Pseudophakia 25752808 Z9 6.1 OU; clear OD, minimal PCO OS, not visually significan t, observe Vitreous o pacity of right eye 7278770815 31635 H43.391 Health Concerns Section Related Observation LastModified by Organization Detai ls LastModified Time None Recorded Concern Status LastModified by Organization Details LastModified Time None Recorded Advance Directives Directive None Recorded Payers Encounter Date Sequence Insurance Name Policy Number Policy Guzman Covered Member ID Guzman Member ID Guarantor Name 06/04/2018 1 [place] [employer] Jashuben S Montgomery [id number] Jashuben S Montgomery 06/04/2018 2 [place] Jashuben S Montgomery [id number] Jashuben S Montgomery 10/01/2018 1 [place] [employer] Jashuben S Montgomery [id number] Jashuben S Montgomery 10/01/2018 2 [place] Jashuben S Montgomery [id number] Jashuben S Montgomery 04/07/2019 1 [place] [employer] Jashuben S Montgomery [id number] Jashuben S Montgomery 04/07/2019 2 [place] Jashuben S Montgomery [id number] Jashuben S Montgomery 05/05/2019 1 [place] [employer] Jashuben S Montgomery [id number] Jashuben S Montgomery 05/05/2019 2 [place] [facility] ([facility] Rukhsana Montgomery [id number] Rukhsana Montgomeyr Notes Date Note Type Note Provider Name and Address Organization Details Recorded Time 8 text/html My shoulder hurts when I reach behind my back. We have put my on hospice yesterday. Dorene Frausto, PT [address] [facility], [place], [address], [facility] [place]04[place] 09:30:11 9 text/html Physical Exam/FemaleReported bypatient.PHAPatient is here for a Wellness Visit. She describes her health status as fair. Patient's health is the same as last year.Notes: 06/05/18 after 8 months in SNF.Lives with her son and his family.Daughter lives in [facility] Assessment and Lifestyle Change Counseling 65+ (Medicare)Reported bypatient.Coronary Artery Disease Risk Assessment:No Family history of coronary artery disease; No personal history of diabetes; No history of peripheral vascular disease, AAA, or carotid disease; No personal history of coronary artery disease Breast Cancer Risk Assessment:No family history of breast cancer Colon Cancer Risk Assessment:No family history of colon polyps or cancer; No history of adenomatous colon polyps Lung Cancer Risk Assessment:Never smoked; No asbestos exposure Fracture Risk Assessment:No unexplained fracture; No use of corticosteroids; No anti-seizure medication; Taking Vitamin D supplement Cognitive/Behavioral Risk Assessment:No personal history of mental illness; No family history of mental illness Safety Risk Assessment:Has grab bars in bathroom; Has rails on steps; No falls; No evidence of abuse/neglect Functional Status:Patient does not have trouble hearing the television or radio when others do not.; Patient does not have to strain or struggle to hear/understand conversations;Patient needs help with preparing meals,transportation, shopping, taking medicines, managing finances, or other activities of daily living.(mostly due to language barrier); Does not live alone; Patient was not unsteady and did not take longer than 30 seconds during the timed get up and go test.[facility]G HypertensionReported bypatient.Compliance:Nonc ompliant with medications;Noncompliant with diet;Noncompliant with exercise Barriers to Carelanguage; absence of motivation; denial Self Care:not doing home bp monitoring Context:No ischemic heart disease; No kidney disease; No history of CVA; No congestive heart failure; No history of transient ischemic attacks; No peripheral vascular disease; No history of diabetes Associated Symptoms:No chest pain; No shortness of breath; No edema; No fatigue; No palpitations; No decline in exercise capacity; No snoring Jessy Lira NP [address] [place], [address], [facility] [place] 18:08:09 9 text/html VMG HypertensionReported bypatient.Control:BP Goal less than (130/80); Treated with medications; Patient understands medications are to lower blood pressure Compliance:Compliant with medications; Compliant with follow-up visits; but didn't take BP med this AM Barriers to Carelanguage Self Care:not doing home bp monitoring Context:No ischemic heart disease; No kidney disease; No history of CVA; No congestive heart failure; No history of transient ischemic attacks; No peripheral vascular disease; No history of diabetes Associated Symptoms:No chest pain; No shortness of breath; No edema; No fatigue; No palpitations; No decline in exercise capacity; No snoring Complaining of joint pain - hands and knees. Xray of a yr ago shows severe OAWould like to try using a brace. Other complaint is heartburn. Not using omeprazole consistently. Jessy Lira NP [address] [place], [address], [facility] [place]07[place] 11:51:17 9 text/html Comprehensive Eye ExamReported bypatient.Quality:2 year exam;blurred vision near and distance with glasses Location:bilateral (OD>OS) Context:currently wears glasses Modifying factors:wears glasses for distance and near Associated Symptoms:no redness; no itching; no floaters;dryness Martha Wong, OD [address] [place], [address], [facility] [place] 05/27/[place] 16:40:10 OBGyn Episode No OBEpisode recorded.
== END 2024-11-04 11:37 | disposition home or self-care (01) ==
LOC: HO.10HDL 11:36
PROVIDERS: Visit Provider Internal Medicine
DX: E78.2 Mixed hyperlipidemia (principal); I10 Essential (primary) hypertension; M17.12 Unilateral primary osteoarthritis, left knee; N39.498 Other specified urinary incontinence; R35.0 Frequency of micturition
CPT/HCPCS: 36415; 80053; 80061; 85025; 87086

== ENCOUNTER 2024-12-16 14:31 | Outpatient (REF) | payer MEDICARE, SELFPAY ==
--- OUTSIDE RECORDS SUMMARY | 2024-12-16 14:40 | XMS_ITS | Data Portability ---
Author Organization [facility], , [facility] Address [address] [place] [address] Assessment Encounter Date Assessment Date Assessment LastModified [...] None recorded. Lab culture, urine 2018 019 [facility], [address] [place], [address], 9 09:32:55 Referral ophthalmol ogist referral - c/o blurry vision OD. anterior vitreous appears to be opaque inf. /3. 2018 019 [facility], [address] [place], [address], 1 13:14:21 occupation al therapist referral [address] [facility], [address] [place], [address], 9 10:58:44 Procedures None recorded. Surgeries None recorded. Imaging None recorded. Medication Orders Systane Ultra 0.4 %-0.3 % eye drops 2018 019 [id number], [address], [place], [id number], 9 16:38:08 betamethas one dipropiona te 0.05 % topical ointment 2018 019 [id number], [address], [place], [id number], 9 14:54:05 omeprazole 20 mg capsule,de layed release 2018 [id number], [address], [place], [id number], 9 14:54:06 Patient TargetsNo targets recorded. Patient Instructions Encounter Date Encounter Id Patient Instructions Last Modified By Organization Details Last Modified Time 10/01/2018 [id number] advance directives: care instructions Not available 10/01/2018 [...] every day. Not available 10/05/2018 18:04:37 04/07/2019 [id number] -OT referral to [facility] where you went before. Therapist may recommend brace. Could also see heating systems installer or ortho to consider injections. She wants [...] for Referral Occupational Therapist Refer ral for Generalized osteoarthritis Severe bilateral OA of hands. ? 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 anterior vitreous appears to be opaque inf. 07/23. Referring Physician: Martha Wong, Optometry, Encounter Date: 05/27/2019 Results Created Date Observation Date Name Description Value Unit Range Abnormal Flag Note LastModifiedBy Organization Detail LastModifiedTime 05/04/20 18 05/08/2018 cultu re, aerob ic culture, aerobic bacteria CULTU RE, AEROB IC BACTE CAMILLA MICRO NUMBE R: [id number] TEST STATU S: FINAL SPECI MEN [...] or P. Aerug inosa ). Not Available [facility] [address] [place] [address] [place], [place], [address], 05/08/2018 13:32:08 09/29/19 19 09/28/2018 BMP, serum or plasm a glucose 91 mg/dL 70-100 Not Available [address], [address], 09/28/2018 11:29:00 09/29/19 19 09/28/2018 BMP, serum or plasm a BUN 22 mg/dL 7-18 high Not Available [address], [address], 09/28/2018 11:29:00 0309/28/2018 BMP, serum or plasm a creatinine 1.0 mg/dL 0.8-1. 3 Not Available [address], [address], 09/28/2018 11:29:00 09/29/19 19 09/28/2018 BMP, serum or plasm a B/C 22.0 ratio Not Available [address], [address], 09/28/2018 11:29:00 09/29/19 19 09/28/2018 BMP, serum or plasm a GFR -non 59.9 mL/mi n Recom daljit d GFR by the Natio nal Kidne y Found ation >60 mL/mi n/1.7 3m2 - Arlene l <60 mL/mi n/1.7 3m2 - Chron ic Kidne y Disea se <15 mL/mi n/1.7 3m2 - Kidne y Failu re Not Available [address], [address], 09/28/2018 11:29:00 09/29/19 19 09/28/2018 BMP, serum or plasm a GFR - if 68.9 mL/mi n For Afric an Ameri can patie nts: Resul ts Multi plied by 1.21 Not Available [address], [address], 09/28/2018 11:29:00 09/29/1909/28/2018 BMP, serum or plasm a sodium 140 mmol/ L 136-14 5 Not Available [address], [address], 09/28/2018 11:29:00 09/29/1909/28/2018 BMP, serum or plasm a potassium 3.8 mmol/ L 3.5-5. 1 Not Available [address], [address], 09/28/2018 11:29:00 09/29/1909/28/2018 BMP, serum or plasm a chloride 103 mmol/ L 96-107 Not Available [address], [address], 09/28/2018 11:29:00 09/29/1909/28/2018 BMP, serum or plasm a anion gap 10.3 5.0-15 .0 Not Available [address], [address], 09/28/2018 11:29:00 09/29/1909/28/2018 BMP, serum or plasm a CO2 27 mmol/ L 21-32 Not Available [address], [address], 09/28/2018 11:29:00 09/29/1909/28/2018 BMP, serum or plasm a calcium 8.7 mg/dL 8.5-10 .3 Not Available [address], [address], 09/28/2018 11:29:00 09/29/1909/28/2018 lipid panel , serum cholesterol 207 mg/dL <200 mg/dl Luciano able 200-2 39 mg/dl Borde rline High >240 mg/dl High Not Available [address], [address], 09/28/2018 11:29:01 09/29/1909/28/2018 lipid panel , serum triglyceride s 100 mg/dL <150 mg/dL Arlene l 150-1 99 mg/dL Borde rline High 200-4 99 mg/dL High >500 mg/dL Very High Not Available [address], [address], 09/28/2018 11:29:01 09/29/1909/28/2018 lipid panel , serum direct HDL 58 mg/dL <40 mg/dl - Major Risk for CHD >60 mg/dl - Negat hermes Risk for CHD Not Available [address], [address], 09/28/2018 11:29:01 09/29/1909/28/2018 LDL, calcu elizabeth , serum (OBS) LDL - calculated 129.0 [...] r is not saroj everett. Not Available [address], [address], 09/28/2018 11:29:03 10/02/1910/01/2018 POC UA glu UA Negati ve Not Available [address], [address], 10/01/2018 14:38:54 10/02/1910/01/2018 POC UA clarity UA Clear Not Available [address], [address], 10/01/2018 14:38:54 10/02/1910/01/2018 POC UA uro UA 0.2000 Not Available [address], [address], 10/01/2018 14:38:54 10/02/1910/01/2018 POC UA ket UA Negati ve Not Available [address], [address], 10/01/2018 14:38:54 10/02/1910/01/2018 POC UA pro UA 1+ Not Available [address], [address], 10/01/2018 14:38:54 10/02/1910/01/2018 POC UA nit UA Negati ve Not Available [address], [address], 10/01/2018 14:38:54 10/02/1910/01/2018 POC UA brayan UA Trace Not Available [address], [address], 10/01/2018 14:38:54 10/02/1910/01/2018 POC UA pH UA 7.0000 Not Available [address], [address], 10/01/2018 14:38:54 10/02/1910/01/2018 POC UA SG UA >=1.03 00 Not Available [address], [address], 10/01/2018 14:38:54 10/02/1910/01/2018 POC UA color UA Yellow Not Available [address], [address], 10/01/2018 14:38:54 10/02/1910/01/2018 POC UA blo UA Trace- intact Not Available [address], [address], 10/01/2018 14:38:54 10/02/1910/01/2018 POC UA sofia UA Negati ve Not Available [address], [address], 10/01/2018 14:38:54 10/02/1910/03/2018 cultu re, urine culture, urine, routine CULTU RE, URINE , ROUTI NE MICRO NUMBE R: [id number] TEST STATU S: FINAL SPECI MEN SOURC E: URINE SPECI MEN QUALI TY: ADEQU ATE RESUL T: Multi ple organ isms prese nt, each less than 10,00 0 CFU/m L. These organ isms, commo nly found on exter nal and inter nal genit pita, are consi dered to be colon izers . No furth er testi ng perfo rmed. Not Available [facility] [address] Oskar Heard, [place], [place], [address], 10/03/2018 09:32:55 04/02/2004/02/2019 BMP, serum or plasm a glucose 95 mg/dL 70-100 Not Available [address], [address], 04/02/2019 12:44:48 04/02/2004/02/2019 BMP, serum or plasm a BUN 21 mg/dL 7-18 high Not Available [address], [address], 04/02/2019 12:44:48 04/02/2004/02/2019 BMP, serum or plasm a creatinine 1.0 mg/dL 0.8-1. 3 Not Available [address], [address], 04/02/2019 12:44:48 04/02/2004/02/2019 BMP, serum or plasm a B/C 21.0 ratio Not Available [address], [address], 04/02/2019 12:44:48 04/02/2004/02/2019 BMP, serum or plasm a GFR -non 59.9 mL/mi n Recom daljit d GFR by the Natio nal Kidne y Found ation >60 mL/mi n/1.7 3m2 - Arlene l <60 mL/mi n/1.7 3m2 - Chron ic Kidne y Disea se <15 mL/mi n/1.7 3m2 - Kidne y Failu re Not Available [address], [address], 04/02/2019 12:44:48 04/02/2004/02/2019 BMP, serum or plasm a GFR - if 68.9 mL/mi n For Afric an Ameri can patie nts: Resul ts Multi plied by 1.21 Not Available [address], [address], 04/02/2019 12:44:48 04/02/2004/02/2019 BMP, serum or plasm a sodium 140 mmol/ L 136-14 5 Not Available [address], [address], 04/02/2019 12:44:48 04/02/2004/02/2019 BMP, serum or plasm a potassium 3.9 mmol/ L 3.5-5. 1 Not Available [address], [address], 04/02/2019 12:44:48 04/02/2004/02/2019 BMP, serum or plasm a chloride 102 mmol/ L 96-107 Not Available [address], [address], 04/02/2019 12:44:48 04/02/2004/02/2019 BMP, serum or plasm a anion gap 11.3 5.0-15 .0 Not Available [address], [address], 04/02/2019 12:44:48 04/02/2004/02/2019 BMP, serum or plasm a CO2 27 mmol/ L 21-32 Not Available [address], [address], 04/02/2019 12:44:48 04/02/2004/02/2019 BMP, serum or plasm a calcium 9.4 mg/dL 8.5-10 .3 Not Available [address], [address], 04/02/2019 12:44:48 04/02/2004/02/2019 lipid panel , serum cholesterol 215 mg/dL <200 mg/dl Luciano able 200-2 39 mg/dl Borde rline High >240 mg/dl High Not Available [address], [address], 04/02/2019 12:44:49 04/02/2004/02/2019 lipid panel , serum triglyceride s 116 mg/dL <150 mg/dL Arlene l 150-1 99 mg/dL Borde rline High 200-4 99 mg/dL High >500 mg/dL Very High Not Available [address], [address], 04/02/2019 12:44:49 04/02/2004/02/2019 lipid panel , serum direct HDL 53 mg/dL <40 mg/dl - Major Risk for CHD >60 mg/dl - Negat hermes Risk for CHD Not Available [address], [address], 04/02/2019 12:44:49 04/02/2004/02/2019 LDL, phillip namd , serum (OBS) LDL - calculated 138.8 [...] with 0-1 risk facto r is not melchores marguerite. Not Available [address], [address], 04/02/2019 12:44:49 12/23/1912/23/2019 CMP, serum or plasm a glucose 86 mg/dL 70-100 Not Available [address], [address], 12/23/2019 15:41:16 12/23/1912/23/2019 CMP, serum or plasm a BUN 16 mg/dL 7-18 Not Available [address], [address], 12/23/2019 15:41:16 12/23/19 20 12/23/2019 CMP, serum or plasm a creatinine 1.0 mg/dL 0.8-1. 3 Not Available [address], [address], 12/23/2019 15:41:16 12/23/19 20 12/23/2019 CMP, serum or plasm a B/C 16.0 ratio Not Available [address], [address], 12/23/2019 15:41:16 12/23/19 20 12/23/2019 CMP, serum or plasm a GFR -non 59.8 mL/mi n Recom daljit d GFR by the Natio nal Kidne y Found ation >60 mL/mi n/1.7 3m2 - Arlene l <60 mL/mi n/1.7 3m2 - Chron ic Kidne y Disea se <15 mL/mi n/1.7 3m2 - Kidne y Failu re Not Available [address], [address], 12/23/2019 15:41:16 12/23/19 20 12/23/2019 CMP, serum or plasm a GFR - if 68.7 mL/mi n For Afric an Ameri can patie nts: Resul ts Multi plied by 1.21 Not Available [address], [address], 12/23/2019 15:41:16 12/23/19 20 12/23/2019 CMP, serum or plasm a sodium 140 mmol/ L 136-14 5 Not Available [address], [address], 12/23/2019 15:41:16 12/23/19 20 12/23/2019 CMP, serum or plasm a potassium 4.4 mmol/ L 3.5-5. 1 Not Available [address], [address], 12/23/2019 15:41:16 12/23/19 20 12/23/2019 CMP, serum or plasm a chloride 103 mmol/ L 96-107 Not Available [address], [address], 12/23/2019 15:41:16 12/23/19 20 12/23/2019 CMP, serum or plasm a anion gap 10.6 5.0-15 .0 Not Available [address], [address], 12/23/2019 15:41:16 12/23/19 20 12/23/2019 CMP, serum or plasm a CO2 26 mmol/ L 21-32 Not Available [address], [address], 12/23/2019 15:41:16 12/23/19 20 12/23/2019 CMP, serum or plasm a calcium 9.2 mg/dL 8.5-10 .3 Not Available [address], [address], 12/23/2019 15:41:16 12/23/19 20 12/23/2019 CMP, serum or plasm a total protein 6.8 g/dL 6.4-8. 2 Not Available [address], [address], 12/23/2019 15:41:16 12/23/19 20 12/23/2019 CMP, serum or plasm a albumin 3.7 g/dL 3.4-5. 0 Not Available [address], [address], 12/23/2019 15:41:16 12/23/19 20 12/23/2019 CMP, serum or plasm a globulin 3.1 g/dL Not Available [address], [address], 12/23/2019 15:41:16 12/23/19 20 12/23/2019 CMP, serum or plasm a A/G 1.2 ratio 0.8-2. 0 Not Available [address], [address], 12/23/2019 15:41:16 12/23/1912/23/2019 CMP, serum or plasm a total bilirubin 0.40 mg/dL 0.00-1 .00 Not Available [address], [address], 12/23/2019 15:41:16 12/23/1912/23/2019 CMP, serum or plasm a AST 20 U/L 0-37 Not Available [address], [address], 12/23/2019 15:41:16 12/23/1912/23/2019 CMP, serum or plasm a ALT 18 U/L 6-63 Not Available [address], [address], 12/23/2019 15:41:16 12/23/19 20 12/23/2019 CMP, serum or plasm a alk. phos. 55 U/L 50-136 Not Available [address], [address], 12/23/2019 15:41:16 12/23/1912/23/2019 lipid panel , serum cholesterol 201 mg/dL <200 mg/dl Luciano able 200-2 39 mg/dl Borde rline High >240 mg/dl High Not Available [address], [address], 12/23/2019 15:41:16 12/23/1912/23/2019 lipid panel , serum triglyceride s 104 mg/dL <150 mg/dL Arlene l 150-1 99 mg/dL Borde rline High 200-4 99 mg/dL High >500 mg/dL Very High Not Available [address], [address], 12/23/2019 15:41:16 12/23/1912/23/2019 lipid panel , serum direct HDL 54 mg/dL <40 mg/dl - Major Risk for CHD >60 mg/dl - Negat hermes Risk for CHD Not Available [address], [address], 12/23/2019 15:41:16 12/23/1912/23/2019 LDL, direc t, serum direct LDL 126 [...] r is not neces marguerite. Not Available [address], [address], 12/23/2019 15:41:17 12/23/1912/23/2019 HbA1c (hemo globi n A1c), blood hemoglobin A1C 5.9 % 4.8-6. 0 Goal: <7% in Patie nts with Diabe oh Not Available [address], [address], 12/23/2019 16:08:24 12/23/1912/23/2019 HbA1c (hemo globi n A1c), blood estimated average glucose 122.6 mg/dL Not Available [address], [address], 12/23/2019 16:08:24 12/23/1912/23/2019 TSH, serum or plasm a TSH 3.19 uIU/m L 0.50-6 .00 The Ameri can Colle ge of Endoc rinol ogy and Ameri can Thyro id Assoc iatio n recom mend goal TSH value s betwe en 0.4-4 .0 mIU/m L. Not Available [address], [address], 12/23/2019 16:25:31 06/02/2006/02/2020 CBC WBC 5.64 K/? ? ?L 3.98-1 0.04 Not Available [address], [address], 06/02/2020 09:25:05 06/02/2006/02/2020 CBC RBC 3.94 M/? ? ?L 3.93-5 .22 Not Available [address], [address], 06/02/2020 09:25:05 06/02/2006/02/2020 CBC HGB 12.1 g/dL 11.2-1 5.7 Not Available [address], [address], 06/02/2020 09:25:05 06/02/2006/02/2020 CBC HCT 37.4 % 34.1-4 4.9 Not Available [address], [address], 06/02/2020 09:25:05 06/02/2006/02/2020 CBC MCV 94.9 fL 79.4-9 4.8 high Not Available [address], [address], 06/02/2020 09:25:05 06/02/2006/02/2020 CBC MCH 30.7 pg 25.6-3 2.2 Not Available [address], [address], 06/02/2020 09:25:05 06/02/2006/02/2020 CBC MCHC 32.4 g/dL 32.2-3 5.5 Not Available [address], [address], 06/02/2020 09:25:05 06/02/2006/02/2020 CBC plt 226 K/? ? ?L 182-36 9 Not Available [address], [address], 06/02/2020 09:25:05 06/02/2006/02/2020 CBC MPV 12.2 fL 9.4-12 .3 Not Available [address], [address], 06/02/2020 09:25:05 06/02/2006/02/2020 CBC neut% 52.1 % 34.0-7 1.1 Not Available [address], [address], 06/02/2020 09:25:05 06/02/2006/02/2020 CBC neut# 2.94 1.56-6 .13 Not Available [address], [address], 06/02/2020 09:25:05 06/02/2006/02/2020 CBC lymph % 32.8 % 19.3-5 1.7 Not Available [address], [address], 06/02/2020 09:25:05 06/02/2006/02/2020 CBC lymph # 1.85 K/? ? ?L 1.18-3 .74 Not Available [address], [address], 06/02/2020 09:25:05 06/02/2006/02/2020 CBC mono% 11.9 % 4.7-12 .5 Not Available [address], [address], 06/02/2020 09:25:05 06/02/2006/02/2020 CBC mono# 0.67 0.24-0 .56 high Not Available [address], [address], 06/02/2020 09:25:05 06/02/20 20 06/02/2020 CBC eo% 2.1 % 0.7-5. 8 Not Available [address], [address], 06/02/2020 09:25:05 06/02/20 20 06/02/2020 CBC eo# 0.12 0.04-0 .36 Not Available [address], [address], 06/02/2020 09:25:05 06/02/2006/02/2020 CBC baso% 0.7 % 0.1-1. 2 Not Available [address], [address], 06/02/2020 09:25:05 06/02/2006/02/2020 CBC baso# 0.04 0.00-0 .08 Not Available [address], [address], 06/02/2020 09:25:05 06/02/2006/02/2020 CBC RDW-CV 12.9 % 11.7-1 4.4 Not Available [address], [address], 06/02/2020 09:25:05 06/02/2006/02/2020 CBC Ig% 0.400 % 0.000- 1.500 Ig % >0.5 Indic ates possi ble Left Shift Not Available [address], [address], 06/02/2020 09:25:05 06/02/2006/02/2020 CBC Ig# 0.020 0.000- 0.093 Not Available [address], [address], 06/02/2020 09:25:05 06/02/2006/02/2020 CBC NRBC% 0.0 % 0.0-0. 2 Not Available [address], [address], 06/02/2020 09:25:05 06/02/20 20 06/02/2020 CBC NRBC# 0.000 0.000- 0.012 Not Available [address], [address], 06/02/2020 09:25:05 06/02/20 20 06/02/2020 CMP, serum or plasm a glucose 90 mg/dL 70-100 Not Available [address], [address], 06/02/2020 12:18:14 06/02/20 20 06/02/2020 CMP, serum or plasm a BUN 13 mg/dL 7-18 Not Available [address], [address], 06/02/2020 12:18:14 06/02/20 20 06/02/2020 CMP, serum or plasm a creatinine 0.8 mg/dL 0.8-1. 3 Not Available [address], [address], 06/02/2020 12:18:14 06/02/2006/02/2020 CMP, serum or plasm a B/C 16.3 ratio Not Available [address], [address], 06/02/2020 12:18:14 06/02/20 20 06/02/2020 CMP, serum or plasm a GFR -non 77.3 mL/mi n Recom daljit d GFR by the Natio nal Kidne y Found ation >60 mL/mi n/1.7 3m2 - Arlene l <60 mL/mi n/1.7 3m2 - Chron ic Kidne y Disea se <15 mL/mi n/1.7 3m2 - Kidne y Failu re Not Available [address], [address], 06/02/2020 12:18:14 06/02/20 20 06/02/2020 CMP, serum or plasm a GFR - if 88.9 mL/mi n For Afric an Ameri can patie nts: Resul ts Multi plied by 1.21 Not Available [address], [address], 06/02/2020 12:18:14 06/02/2006/02/2020 CMP, serum or plasm a sodium 141 mmol/ L 136-14 5 Not Available [address], [address], 06/02/2020 12:18:14 06/02/2006/02/2020 CMP, serum or plasm a potassium 4.2 mmol/ L 3.5-5. 1 Not Available [address], [address], 06/02/2020 12:18:14 06/02/2006/02/2020 CMP, serum or plasm a chloride 103 mmol/ L 96-107 Not Available [address], [address], 06/02/2020 12:18:14 06/02/2006/02/2020 CMP, serum or plasm a anion gap 11.5 5.0-15 .0 Not Available [address], [address], 06/02/2020 12:18:14 06/02/2006/02/2020 CMP, serum or plasm a CO2 27 mmol/ L 21-32 Not Available [address], [address], 06/02/2020 12:18:14 06/02/2006/02/2020 CMP, serum or plasm a calcium 9.2 mg/dL 8.5-10 .3 Not Available [address], [address], 06/02/2020 12:18:14 06/02/2006/02/2020 CMP, serum or plasm a total protein 7.6 g/dL 6.4-8. 2 Not Available [address], [address], 06/02/2020 12:18:14 06/02/20 20 06/02/2020 CMP, serum or plasm a albumin 3.9 g/dL 3.4-5. 0 Not Available [address], [address], 06/02/2020 12:18:14 06/02/20 20 06/02/2020 CMP, serum or plasm a globulin 3.7 g/dL Not Available [address], [address], 06/02/2020 12:18:14 06/02/2006/02/2020 CMP, serum or plasm a A/G 1.1 ratio 0.8-2. 0 Not Available [address], [address], 06/02/2020 12:18:14 06/02/2006/02/2020 CMP, serum or plasm a total bilirubin 0.40 mg/dL 0.00-1 .00 Not Available [address], [address], 06/02/2020 12:18:14 06/02/2006/02/2020 CMP, serum or plasm a AST 17 U/L 0-37 Not Available [address], [address], 06/02/2020 12:18:14 06/02/2006/02/2020 CMP, serum or plasm a ALT 22 U/L 6-63 Not Available [address], [address], 06/02/2020 12:18:14 06/02/2006/02/2020 CMP, serum or plasm a alk. phos. 60 U/L 50-136 Not Available [address], [address], 06/02/2020 12:18:14 06/02/20 20 06/02/2020 lipid panel , serum cholesterol 192 mg/dL <200 mg/dl Luciano able 200-2 39 mg/dl Esha cornejoine High >240 mg/dl High Not Available [address], [address], 06/02/2020 12:18:15 06/02/20 20 06/02/2020 lipid panel , serum triglyceride s 86 mg/dL <150 mg/dL Arlene l 150-1 99 mg/dL Borde rline High 200-4 99 mg/dL High >500 mg/dL Very High Not Available [address], [address], 06/02/2020 12:18:15 06/02/20 20 06/02/2020 lipid panel , serum direct HDL 67 mg/dL <40 mg/dl - Major Risk for CHD >60 mg/dl - Negat hermes Risk for CHD Not Available [address], [address], 06/02/2020 12:18:15 06/02/20 20 06/02/2020 LDL, calcu elizabeth , serum (OBS) LDL - calculated 107.8 [...] r is not neces marguerite. Not Available [address], [address], 06/02/2020 12:18:16 06/02/20 20 06/02/2020 vitam in D, 25-hy droxy , total [...] er than 30 ng/mL . Not Available [address], [address], 06/02/2020 15:32:01 06/02/20 20 06/08/2020 vitam in B12, serum vitamin B12 800 pg/mL 230-10 50 Not Available [address], [address], 06/08/2020 12:56:27 08/06/19 22 08/07/2021 CBC WBC 6.67 K/? ? ?L 3.98-1 0.04 Not Available [address], [address], 08/07/2021 09:53:52 08/06/19 22 08/07/2021 CBC RBC 3.79 M/? ? ?L 3.93-5 .22 low Not Available [address], [address], 08/07/2021 09:53:52 08/06/19 22 08/07/2021 CBC HGB 11.7 g/dL 11.2-1 5.7 Not Available [address], [address], 08/07/2021 09:53:52 08/06/19 22 08/07/2021 CBC HCT 36.5 % 34.1-4 4.9 Not Available [address], [address], 08/07/2021 09:53:52 08/06/19 22 08/07/2021 CBC MCV 96.3 fL 79.4-9 4.8 high Not Available [address], [address], 08/07/2021 09:53:52 08/06/19 22 08/07/2021 CBC MCH 30.9 pg 25.6-3 2.2 Not Available [address], [address], 08/07/2021 09:53:52 08/06/19 22 08/07/2021 CBC MCHC 32.1 g/dL 32.2-3 5.5 low Not Available [address], [address], 08/07/2021 09:53:52 08/06/19 22 08/07/2021 CBC plt 217 K/? ? ?L 182-36 9 Not Available [address], [address], 08/07/2021 09:53:52 08/06/19 22 08/07/2021 CBC MPV 12.7 fL 9.4-12 .3 high Not Available [address], [address], 08/07/2021 09:53:52 08/06/19 22 08/07/2021 CBC neut% 56.1 % 34.0-7 1.1 Not Available [address], [address], 08/07/2021 09:53:52 08/06/19 22 08/07/2021 CBC neut# 3.73 1.56-6 .13 Not Available [address], [address], 08/07/2021 09:53:52 08/06/19 22 08/07/2021 CBC lymph % 32.2 % 19.3-5 1.7 Not Available [address], [address], 08/07/2021 09:53:52 08/06/19 22 08/07/2021 CBC lymph # 2.15 K/? ? ?L 1.18-3 .74 Not Available [address], [address], 08/07/2021 09:53:52 08/06/19 22 08/07/2021 CBC mono% 9.4 % 4.7-12 .5 Not Available [address], [address], 08/07/2021 09:53:52 08/06/19 22 08/07/2021 CBC mono# 0.63 0.24-0 .56 high Not Available [address], [address], 08/07/2021 09:53:52 08/06/19 22 08/07/2021 CBC eo% 1.6 % 0.7-5. 8 Not Available [address], [address], 08/07/2021 09:53:52 08/06/19 22 08/07/2021 CBC eo# 0.11 0.04-0 .36 Not Available [address], [address], 08/07/2021 09:53:52 08/06/19 22 08/07/2021 CBC baso% 0.3 % 0.1-1. 2 Not Available [address], [address], 08/07/2021 09:53:52 08/06/19 22 08/07/2021 CBC baso# 0.02 0.00-0 .08 Not Available [address], [address], 08/07/2021 09:53:52 08/06/19 22 08/07/2021 CBC RDW-CV 13.5 % 11.7-1 4.4 Not Available [address], [address], 08/07/2021 09:53:52 08/06/19 22 08/07/2021 CBC Ig% 0.400 % 0.000- 1.500 Ig % >0.5 Indic ates possi ble Left Shift Not Available [address], [address], 08/07/2021 09:53:52 08/06/19 22 08/07/2021 CBC Ig# 0.030 0.000- 0.093 Not Available [address], [address], 08/07/2021 09:53:52 08/06/19 22 08/07/2021 CBC NRBC% 0.0 % 0.0-0. 2 Not Available [address], [address], 08/07/2021 09:53:52 08/06/19 22 08/07/2021 CBC NRBC# 0.000 0.000- 0.012 Not Available [address], [address], 08/07/2021 09:53:52 08/06/19 22 08/07/2021 COMP. METAB OLIC PANEL glucose 117 mg/dL 70-100 high Not Available [address], [address], 08/07/2021 10:04:55 08/06/19 22 08/07/2021 COMP. METAB OLIC PANEL BUN 19 mg/dL 7-18 high Not Available [address], [address], 08/07/2021 10:04:55 08/06/19 22 08/07/2021 COMP. METAB OLIC PANEL creatinine 1.1 mg/dL 0.8-1. 3 Not Available [address], [address], 08/07/2021 10:04:55 08/06/19 22 08/07/2021 COMP. METAB OLIC PANEL B/C 17.3 ratio Not Available [address], [address], 08/07/2021 10:04:55 08/06/19 22 08/07/2021 COMP. METAB [...] be used in pregn lauren. Not Available [address], [address], 08/07/2021 10:04:55 08/06/19 22 08/07/2021 COMP. METAB OLIC PANEL sodium 139 mmol/ L 136-14 5 Not Available [address], [address], 08/07/2021 10:04:55 08/06/19 22 08/07/2021 COMP. METAB OLIC PANEL potassium 3.7 mmol/ L 3.5-5. 1 Not Available [address], [address], 08/07/2021 10:04:55 08/06/19 22 08/07/2021 COMP. METAB OLIC PANEL chloride 101 mmol/ L 96-107 Not Available [address], [address], 08/07/2021 10:04:55 08/06/19 22 08/07/2021 COMP. METAB OLIC PANEL anion gap 11.6 5.0-15 .0 Not Available [address], [address], 08/07/2021 10:04:55 08/06/19 22 08/07/2021 COMP. METAB OLIC PANEL CO2 26 mmol/ L 21-32 Not Available [address], [address], 08/07/2021 10:04:55 08/06/19 22 08/07/2021 COMP. METAB OLIC PANEL calcium 8.8 mg/dL 8.5-10 .3 Not Available [address], [address], 08/07/2021 10:04:55 08/06/19 22 08/07/2021 COMP. METAB OLIC PANEL total protein 7.2 g/dL 6.4-8. 2 Not Available [address], [address], 08/07/2021 10:04:55 08/06/19 22 08/07/2021 COMP. METAB OLIC PANEL albumin 3.6 g/dL 3.4-5. 0 Not Available [address], [address], 08/07/2021 10:04:55 08/06/19 22 08/07/2021 COMP. METAB OLIC PANEL globulin 3.6 g/dL Not Available [address], [address], 08/07/2021 10:04:55 08/06/19 22 08/07/2021 COMP. METAB OLIC PANEL A/G 1.0 ratio 0.8-2. 0 Not Available [address], [address], 08/07/2021 10:04:55 08/06/19 22 08/07/2021 COMP. METAB OLIC PANEL total bilirubin 0.40 mg/dL 0.00-1 .00 Not Available [address], [address], 08/07/2021 10:04:55 08/06/19 22 08/07/2021 COMP. METAB OLIC PANEL AST 23 U/L 0-37 Not Available [address], [address], 08/07/2021 10:04:55 08/06/19 22 08/07/2021 COMP. METAB OLIC PANEL ALT 23 U/L 6-63 Not Available [address], [address], 08/07/2021 10:04:55 08/06/19 22 08/07/2021 COMP. METAB OLIC PANEL alk. phos. 53 U/L 50-136 Not Available [address], [address], 08/07/2021 10:04:55 08/06/19 22 08/07/2021 DIREC T [...] 0-1 risk facto r is not neces marguertie. Not Available [address], [address], 08/07/2021 10:04:56 08/06/19 22 08/07/2021 TSH TSH 1.93 uIU/m L 0.50-6 .00 LIPM= Speci men Moder ately Lipem ic. Chem Resul ts may be effec aliyah. The Ameri can Colle ge of Endoc rinol ogy and Ameri can Thyro id Assoc iatio n recom mend goal TSH value s betwe en 0.4-4 .0 mIU/m L. Not Available [address], [address], 08/07/2021 11:14:27 08/06/19 22 08/08/2021 LIPID PANEL cholesterol 202 mg/dL LIPS= Speci men Sligh tly Lipem ic. Chem Resul ts may be effec aliyah. <200 mg/dl Luciano able 200-2 39 mg/dl Borde rline High >240 mg/dl High Not Available [address], [address], 08/08/2021 11:54:11 08/06/1908/08/2021 LIPID PANEL triglyceride s 409 mg/dL high <150 mg/dL Arlene l 150-1 99 mg/dL Borde rline High 200-4 99 mg/dL High >500 mg/dL Very High Not Available [address], [address], 08/08/2021 11:54:11 08/06/19 22 08/08/2021 LIPID PANEL direct HDL 47 mg/dL <40 mg/dl - Major Risk for CHD >60 mg/dl - Negat hermes Risk for CHD Not Available [address], [address], 08/08/2021 11:54:11 Result Notes None recorded. Problems Name Problem SNOMED Code Status Onset Date Resolution Date Notes Provider Name and Address Organization Details Recorded Time Helicoba cter-ass ociated gastriti s 40975525 Active Nino Norris MD [address] [place] [address], [address], [facility] 4 11:09:02 Gastroes ophageal reflux disease 937336200 Active 2018 Jessy Lira NP [address] [place] [address], [address], [facility] 9 14:11:48 Mixed hyperlip idemia 325041894 Completed 200311/12/2016 Removal Reason: no longer an issue VLADIMIR Polanco [address] [place], [address], [facility] 7 13:47:48 Nervous system symptoms Completed 200303/16/2011 Not Available [facility] 3 03:12:13 Nausea 057139280 Completed 200803/16/2011 Not Available [facility] 3 03:12:13 Presbyop ia 86211254 Completed 200604/13/2013 Mariola Alejo NP [address] [place], [address], [facility] 3 18:28:39 Essentia l hyperten gina 30038834 Completed 04/13/2013 Mariola Alejo NP [address] [place], [address], [facility] 3 18:28:39 Nausea and vomiting 64851916 Completed 200603/16/2011 Not Available [facility] 3 03:12:13 Constipa tion 35691576 Completed 03/16/2011 Not Available [facility] 3 03:12:13 Diarrhea 66460132 Completed 200603/16/2011 Not Available [facility] 3 03:12:13 Benign essentia l hyperten gina 0358556 Active 2003 Mariola Alejo NP [address] [place], [address], [facility] 6 20:50:33 Pain of multiple joints 33035558 Completed 03/16/2011 Not Available [facility] 3 03:12:13 Acute pharyngi tis 491379511 Completed 03/16/2011 Not Available [facility] 3 03:12:13 Hypermet ropia 75731349 Completed 200404/13/2013 Mariola Alejo NP [address] [place], [address], [facility] 3 18:28:39 Disorder of skeletal system 07879055 Completed 200303/16/2011 Not Available [facility] 3 03:12:13 Pain of joint 20657321 Completed 200403/16/2011 Not Available [facility] 3 03:12:13 Elevated blood-pr essure reading without diagnosi s of hyperten gina 352799088 Completed 200403/16/2011 Not Available [facility] 3 03:12:13 Generali zed osteoart hritis 127255568 Active 2006 Mariola Alejo NP [address] [place], [address], [facility] 4 07:50:37 Hyperlip idemia 65784471 Completed 03/16/2011 Not Available [facility] 3 03:12:13 Pain of wrist region 45748593 Completed 200403/16/2011 Not Available [facility] 3 03:12:13 Acute bronchit is 29475648 Completed 200703/16/2011 Not Available [facility] 3 03:12:13 Malaise and fatigue 203561183 Completed 200803/16/2011 Not Available [facility] 3 03:12:13 Decrease in height 08154493 Completed 200603/16/2011 Not Available [facility] 3 03:12:13 Fever 018167271 Completed 200803/16/2011 Not Available [facility] 3 03:12:13 Pain of shoulder region 04671853 Completed 03/16/2011 Not Available [facility] 3 03:12:13 Myopia 79395809 Completed 200703/16/2011 Not Available [facility] 3 03:12:13 Astigmat ism 47731521 Completed 200604/13/2013 Mariola Alejo NP [address] [place], [address], [facility] 3 18:28:39 Nuclear senile cataract 608473211 Completed 200405/27/2019 Martha Wong, OD [address] [place], [address], [facility] 9 16:39:53 Sprain of ankle 06375798 Completed 200503/16/2011 Not Available [facility] 3 03:12:13 Joint pain in ankle and foot Completed 200503/16/2011 Not Available 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 Completed 200404/13/2013 Mariola Alejo NP [address] [place] [address], [address], [facility] 3 18:28:39 On examinat ion - a rash Completed 03/16/2011 Not Available [facility] 3 03:12:13 Abnormal weight loss 030804518 Completed 04/13/2013 Mariola Alejo NP [address] [place], [address], [facility] 3 18:28:39 Benign hyperten sive heart disease 40440112 Completed 03/16/2011 Not Available [facility] 3 03:12:13 Herpes zoster 7985635 Completed 200303/16/2011 Not Available [facility] 3 03:12:13 Osteopor osis 06525097 Active 2005 Mariola Alejo NP [address] [place], [address], [facility] 6 20:50:33 Menopaus al symptom 72760315 Completed 200303/16/2011 Not Available [facility] 3 03:12:13 Low back pain 428411578 Active Not Available [facility] 3 03:12:13 Chronic allergic conjunct ivitis 89343278 Completed 200603/16/2011 Not Available [facility] 3 03:12:13 Pain in limb 82649556 Completed 200603/16/2011 Not Available [facility] 3 03:12:13 Problem Notes None recorded. Procedures Surgical History Date Name Laterality Status Provider Name and Address Organization Details Recorded Time 05/27/20 19 Refraction completed Yaneth Sorenson [facility] 05/26/2019 16:40:35 10/02/19 19 Medicare Wellness Visit completed Giulia Padilla MA [facility] 10/01/2018 13:37:31 10/02/19 19 POC Urinalysis Testing completed Giulia Padilla MA [facility] 10/01/2018 14:26:19 10/02/19 19 Advanced Care Planning completed Jessy Lira, TRANSIT MIX OPERATOR [address] [place], [address], [facility] 10/01/2018 14:51:32 06/04/20 21086: Therapeutic Exercise completed Dorene Frausto, PT [address] [place], [address], [facility] 06/04/2018 09:27:47 06/04/20 18 39319: Manual Therapy completed Dorene Frausto, PT [address] [place], [address], [facility] 06/04/2018 09:27:52 05/25/20 18 Refraction completed Nava Grace [facility] 05/25/2018 11:08:38 05/15/20 18 00269: Therapeutic Exercise completed Dorene Frausto, PT [address] [place], [address], [facility] 05/15/2018 10:04:25 05/15/20 18 79136: Manual Therapy completed Dorene Frausto, PT [address] [place], [address], [facility] 05/15/2018 10:04:29 05/07/20 18 60297: Therapeutic Exercise completed Dorene Frausto, PT [address] [place], [address], [facility] 05/09/2018 19:15:49 05/07/20 18 83289: Manual Therapy completed Dorene Frausto, PT [address] [place], [address], [facility] 05/09/2018 19:15:54 05/04/20 18 Wound Care completed Katherine Rivas LPN [facility] 05/04/2018 14:27:58 05/04/20 18 Physical Activity Counselling completed Dorene Frausto, PT [address] [place], [address], [facility] 05/06/2018 08:45:31 05/04/20 18 72504: PT Eval Low Complexity completed Dorene Frausto, PT [address] [place], [address], [facility] 05/06/2018 08:45:27 05/22/20 17 Refraction completed Monique Rascon [facility] 05/22/2017 11:34:20 05/06/20 17 Medicare Wellness Visit completed Starr Humphrey PROPAGATOR LABORER [facility] 05/06/2017 10:27:43 09/10/19 17 Medicare Risk for Falls Screen completed Nati Montana CMA [facility] 09/10/2016 09:38:44 07/17/20 16 Trigger Finger Injection RB completed Mika Solitario MD PhD [address] [place], [address], [facility] 07/17/2016 10:11:42 05/02/20 16 Medicare Wellness Visit completed Arina Shabazz [facility] 05/02/2016 10:39:25 04/09/20 16 Refraction completed Monique Rascon [facility] 04/09/2016 09:07:58 04/11/20 15 Medicare Wellness Visit completed Zaira Rosario MA [facility] 04/11/2015 10:12:45 04/07/20 14 Medicare Wellness Visit completed Zaira Rosario MA [facility] 04/07/2014 10:59:31 12/15/19 14 Current <strong>Medication s</strong> Documented (G8427) completed Aria Baez, OT [address] [place], [address], [facility] 12/14/2013 15:00:47 12/10/19 14 <strong>Pain</stro ng> Assessment and Follow-up (G8730) completed Aria Baez, OT [address] [place], [address], [facility] 12/09/2013 14:41:53 12/10/19 14 <strong>Falls</str que> Risk Assessment - No Risk (1101F) completed Aria Baez, OT [address] [place], [address], [facility] 12/09/2013 14:41:53 12/10/19 14 <strong>BMI</stron g> Normal - No Follow-up Required (G8420) completed Aria Baez, OT [address] [place], [address], [facility] 12/09/2013 14:41:53 12/10/19 14 Current <strong>Medication s</strong> Documented (G8427) completed Aria Baez, OT [address] [place], [address], [facility] 12/09/2013 14:41:53 08/27/19 14 Corticosteroid Injection completed Nino Norris MD [address] [place], [address], [facility] 08/27/2013 11:10:37 03/18/20 12 Medicare Wellness Visit completed Zaira Rosario MA [facility] 03/18/2012 11:02:01 01/23/20 11 Medicare Annual Wellness Visit completed Zaira Rosario MA [facility] 01/22/2011 14:53:10 01/23/20 11 Medicare Risk for Falls Screen completed Zaira Rosario MA [facility] 01/22/2011 14:53:10 01/23/20 11 Advanced Care Planning completed Zaira Rosario MA [facility] 01/22/2011 14:53:10 05/01/20 10 Treatment and Advice completed Nan Bright, PT [address] [place], [address], [facility] 05/01/2010 08:54:03 04/24/20 10 Treatment and Advice completed Nan Bright, PT [address] [place], [address], [facility] 04/24/2010 07:33:25 Imaging Results None recorded. Procedure [...] splints Not Available Not Available Not Available vitamin d 1000iu softgels fn 100s TK 1 C PO QD active Not Available Not Available No t Available amoxicill in 500 mg capsule TK [...] active [facility] for [facility] Not [...] 2011 active [facility]. [...] Updated DateTime 9 150.495 cm 30.5 kg/m2 74719.1 4 g 98 % 98 % 68 /min 134 mm[Hg] 80 mm[Hg] Giulia Padilla [facility] 9 13:53:45 Date Recorded Systolic blood pressure Diastolic blood pressure Provider Name and Address Organization Details Last Updated DateTime 04/07/2019 158 mm[Hg] 90 mm[Hg] Jessy Lira, PA [address] [place], [address], [facility] 04/07/2019 10:54:05 Date Recorded Body height Body mass index (BMI) Body weight Heart rate Systolic blood pressure Diastolic blood pressure Systolic blood pressure Diastolic blood pressure Provider Name and Address Organization Details Last Updated DateTime 9 150.495 cm 30.1 kg/m2 51436.2 6 g 60 /min 138 mm[Hg] 96 mm[Hg] 132 mm[Hg] 90 mm[Hg] Klever Lester [facility] 9 10:30:15 Date Recorded Heart rate Systolic blood pressure Diastolic blood pressure Provider Name and Address Organization Details Last Updated DateTime 05/05/2019 75 /min 143 mm[Hg] 76 mm[Hg] [facility] 10:08:30 Social History Question Answer Notes LastModified by Organizat ion Details LastModified Time Tobacco Smoking Status Never Smoker Not Available [facility] 06/06/2011 04:53:49 What Type Of Diet Are You Following? REGULAR Information not available 04/11/2015 Which Illicit Or Recreational Drugs Have You Used? Denpatrick kloven Information not available 05/06/2017 How Many [...] How Many Children Do You Have? 2 17 Information not available 06/06/2011 Seat Belts Used Routinely Yes Information not available 06/06/2011 Smoke Alarm In Home Yes Information not available 06/06/2011 General Stress Level Low [email or web address] Information not available 04/11/2015 Sex: Unknown Functional Status Question Answer Note LastModified by Organizat ion Details LastModified Time What is your level of alcohol consumption? None Information not available 12/03/2013 What is your occupation? retired from [email or web address] Information not available 05/06/2017 Mental Status None recorded. Family History Relationship [...] virus, trivalent, preservative 1 completed Not Available [facility] 08/07/2019 02:18:13 Td(adult) unspecified formulation 5 completed Not Available [facility] 06/05/2011 05:21:07 Influenza, split virus, trivalent, preservative 2 completed Not Available [facility] 08/07/2019 02:28:10 pneumococcal polysaccharide PPV23 3 completed Not Available [facility] 08/07/2019 02:14:35 Influenza, high-dose, trivalent, PF 4 completed Not Available [facility] 08/07/2019 02:33:41 Pneumococcal conjugate PCV 13 6 completed Not Available [facility] 08/07/2019 02:20:17 zoster live 6 completed Not Available [facility] 08/07/2019 02:29:20 Influenza, split virus, trivalent, preservative 3 completed Zaira Rosario MA [facility] 05/18/2013 11:24:31 Influenza, high-dose, trivalent, PF 6 completed Not Available [facility] 08/07/2019 02:21:03 Influenza, high-dose, trivalent, PF 7 completed Not Available [facility] 08/07/2019 02:22:04 [facility] ANDREY willis, [facility] 09/06/2014 08:57:15 Hep A, adult 5 completed October [facility]. RN alba, [facility] 09/06/2014 08:57:15 typhoid, unspecified formulation 5 completed October [facility]. RN alba, [facility] 09/06/2014 08:57:15 Influenza, high-dose, trivalent, PF 8 completed Not Available [facility] 08/07/2019 02:32:28 Influenza, high-dose, trivalent, PF 9 completed Not Available [facility] 08/07/2019 02:24:04 Influenza, split virus, trivalent, preservative 0 completed Not Available [facility] 08/07/2019 02:17:47 Past Encounters Encounter ID Performer Location Encounter Start Date Encounter Closed Date Diagnosis/Indication Diagnosis SNOMED-CT Code Diagnosis ICD10 Code Diagnosis Note [id number] PA Warren, [facility], [address]ICE [address] [place] [address] 12/22/2003 11:15:34 12/23/2003 08:54:34 [id number] [facility] GRP LAB LAB - [address] [address] 12/23/2003 08:25:14 12/23/2003 08:27:31 [id number] PA Warren, [facility], [address] [place] [address] 12/29/2003 08:39:08 12/29/2003 11:41:39 [id number] [facility] , [facility] [address] [place] [address] 01/27/2004 10:29:25 08/10/2008 02:02:29 [id number] [facility] , [address] [address] 01/27/2004 00:00:00 08/10/2008 02:02:29 [id number] [facility] BONE DENSITY TECH Radiology , [facility] [address] [place] [address] 01/30/2004 09:04:59 08/10/2008 02:02:29 [id number] [facility] BONE DENSITY TECH Radiology , [facility] [address] [place] [address] 01/30/2004 00:00:00 08/10/2008 02:02:29 [id number] PA Warren, [facility], [address] [place] [address] 03/09/2004 08:22:28 03/12/2004 08:21:57 [id number] MD CASEY Shelton, [facility], [address] [place] [address] 04/09/2004 17:19:08 04/10/2004 09:37:02 [id number] PA Warren, [facility], [address] [place] [address] 04/12/2004 07:36:01 04/12/2004 14:10:00 [id number] PA Warren, [facility], [address] [place] [address] 01/11/2005 10:01:08 01/11/2005 13:28:36 [id number] [facility] LAB LAB - [address] [address] 01/14/2005 08:44:22 01/14/2005 08:44:37 [id number] [facility] RADIOLOGY [facility] Rad[facility] , [address] [address] 01/11/2005 10:48:18 01/14/2005 10:03:57 [id number] PA Warren, [facility], [address] [place] [address] 01/11/2005 00:00:00 08/10/2008 02:02:29 [id number] PA Warren, [facility], [address] [place] [address] 01/25/2005 07:31:36 01/25/2005 10:20:32 [id number] PA Warren, [facility], [address] [place] [address] 02/26/2005 07:28:39 02/27/2005 12:29:49 [id number] [facility] Radiology , [address] [address] 02/26/2005 07:52:49 08/10/2008 02:02:29 [id number] [facility] LAB - [address] [address] 04/15/2005 08:36:27 04/15/2005 08:36:44 [id number] Cesar Torres, OD [facility], [address] [address] 02/26/2005 08:51:16 02/27/2005 09:32:28 [id number] PA Warren, [facility], [address] [place] [address] 07/29/2005 07:28:09 08/10/2008 02:02:29 [id number] PA Warren, [facility], [address] [place] [address] 08/19/2005 07:47:27 08/10/2008 02:02:29 [id number] [facility] - [address] [address] 08/19/2005 08:03:41 08/19/2005 08:03:58 [id number] PA Warren, [facility], [address] [place] [address] 12/04/2005 08:03:21 12/04/2005 10:57:34 [id number] [facility] - [address] [address] 12/04/2005 08:25:16 12/04/2005 08:25:28 [id number] [facility] Radiology , [address] [address] 03/21/2006 09:59:54 08/10/2008 02:02:29 [id number] [facility] RADIOLOGY [facility] , [address] [address] 05/13/2006 11:44:30 08/10/2008 02:02:29 [id number] Klever Herrera MD FP, [facility], [address] [place] [address] 05/13/2006 10:52:51 05/14/2006 10:40:56 [id number] PA Warren, [facility], [address] [place] [address] 06/10/2006 10:42:34 06/10/2006 14:11:11 [id number] PA Warren, [facility], [address] [place] [address] 07/24/2006 11:03:13 07/24/2006 14:27:30 [id number] PA Warren, [facility], [address] [place] [address] 07/28/2006 13:01:19 07/28/2006 16:18:52 [id number] PA Warren, [facility], [address] [place] [address] 08/28/2006 10:54:47 08/28/2006 13:28:58 [id number] [facility], [address] [address] 09/12/2006 11:58:51 09/12/2006 16:42:49 [id number] Elizabeth Amador, OD Eye Care, [address] [address] 09/12/2006 10:09:43 09/12/2006 11:27:22 [id number] [facility] BONE DENSITY TECH Radiology , [address] [address] 02/04/2007 08:33:07 02/05/2007 09:13:05 [id number] PA Warren, [facility], [address] [place] [address] 02/17/2007 08:09:52 02/17/2007 09:56:32 [id number] [facility] RADIOLOGY Technolog[facility] st Radiology , [address] [address] 02/17/2007 09:07:13 02/18/2007 09:14:54 [id number] [facility] - [address] [address] 02/17/2007 08:46:26 02/17/2007 08:46:33 [id number] Maren Henry NP FP, [facility], [address] [place] [address] 04/03/2007 11:50:06 04/10/2007 08:53:04 [id number] [facility] Radiology , [address] [address] 05/20/2007 14:24:14 05/21/2007 08:38:47 [id number] [facility], [address] [address] [id number] Elizabeth Vazquezchino, OD Eye Care, [address] [address] 10/12/2007 10:51:22 10/14/2007 09:50:24 [id number] PA Warren, [facility], [address] [place] [address] 11/19/2007 10:59:36 08/10/2008 02:02:29 [id number] PA Warren, [facility], [address] [place] [address] 12/07/2007 09:55:00 08/10/2008 02:02:29 [id number] [facility] - [address] [address] 01/13/2008 07:47:59 01/13/2008 07:48:04 [id number] PA Warren, [facility], [address] [place] [address] 03/22/2008 08:54:22 08/10/2008 02:02:29 [id number] [facility] - [address] [address] 03/22/2008 09:38:05 03/22/2008 09:38:12 [id number] PA Suh, [facility], [address] [place] [address] 08/12/2008 09:38:19 08/23/2008 02:02:00 [id number] Daryl Warren MD Radiology , [address] [address] 08/24/2008 13:02:03 08/25/2008 09:22:02 [id number] PA Warren, [facility], [address] [place] [address] 09/09/2008 07:57:12 09/13/2008 13:36:30 [id number] [facility] RADIOLOGY Technologi Radiology , [facility] [address] [place] [address] 09/09/2008 08:51:06 09/09/2008 12:56:34 [id number] PA Warren, [facility], [address] [place] [address] 09/20/2008 09:29:23 09/23/2008 11:19:38 [id number] [facility] BONE DENSITY TECH Radiology , [address] [address] 02/08/2009 09:29:27 02/13/2009 13:57:49 [id number] [facility] - [address] [address] 08/12/2008 10:11:32 08/12/2008 10:11:40 [id number] PA Suh, [facility], [address] [place] [address] 06/20/2009 14:08:44 06/23/2009 08:25:43 [id number] [facility] Radiology , [address] [address] 12/06/2009 10:53:50 12/07/2009 11:19:25 [id number] PA Warren, [facility], [address] [place] [address] 12/15/2009 11:30:58 12/15/2009 12:56:51 [id number] PA Warren, [facility], [address] [place] [address] 04/17/2010 09:17:15 04/19/2010 12:32:13 [id number] Nan keith, PT Physical Therapy, [address] [address] 04/24/2010 07:07:41 04/25/2010 08:51:09 [id number] Nan keith, PT Physical Therapy, [address] [address] 05/01/2010 08:50:55 05/01/2010 10:10:22 [id number] Nan keith, PT Physical Therapy, [facility] [address] [place] [address] 05/08/2010 12:07:29 05/08/2010 15:30:50 [id number] [facility] Radiology , [facility] [address] [place] [address] 12/11/2010 09:20:57 12/12/2010 11:25:59 [id number] PA Suh, [facility], [address] [place] [address] 12/20/2010 09:23:51 12/24/2010 08:15:58 [id number] PA Suh, [facility], OFFICE [address] [place] [address] 01/22/2011 13:50:17 01/23/2011 08:30:52 [id number] [facility] BONE DENSITY TECH Radiology , [facility] [address] [place] [address] 03/07/2011 09:28:14 03/08/2011 11:59:02 [id number] PA Suh, [facility], [address] [place] [address] 05/01/2011 11:20:21 05/02/2011 08:22:58 [id number] Evens Fraser MD Radiology , [address] [address] 12/23/2011 10:02:45 12/24/2011 09:05:48 [id number] PA Suh, [facility], [address] [place] [address] 03/18/2012 09:48:59 03/18/2012 14:59:46 [id number] PA Suh, [facility], [address] [place] [address] 11/18/2012 09:20:15 11/18/2012 10:00:37 [id number] MD CASEY Milian, [facility], [address] [place] [address] 11/27/2012 11:31:48 11/30/2012 11:27:06 [id number] PA Suh, [facility], [address] [place] [address] 01/20/2013 07:23:01/20/2013 08:26:03 [id number] Mariola Alejo NP , [facility], [address] [place] [address] 05/18/2013 10:53:34 05/18/2013 11:56:40 Benign essential hypertension 9002949 Blood pressure close to goal 140/90. Cont to enc regular med dosing, lower sodium diet. Generalize d osteoarthritis 584017613 Will recheck ESR to r/o PMR. Likely OA, renal function is intact and will trial naproxen to see if she is afforded some relief. COnsder rheum consult. Mixed hyperlipidemia 418587267 Osteoporosis 10200929 [id number] Nino Norris MD , [facility], [address] [place] [address] 07/30/2013 08:41:45 07/30/2013 09:20:14 Burning epigastric pain 62529070 Epigastric burning without significan t pain. No [...] symptoms. Indication s for UC/ER use discussed. [id number] Nino Norris MD , [facility], [address] [place] [address] 08/27/2013 10:04:34 08/27/2013 11:06:10 Helicobacter-associat ed gastritis 52196292 Marked improvemen t of her gastritis symptoms. Denies any evidence of GI bleeding. No clinical evidence of acute abdomen. No current abdominal pain. No food intoleranc e issues. Tendinitis [id number] Maria Guadalupe ent with right-side d DeQuervain [...] or increased pain. Benign ess ential hypertension 3342131 Requesting a refill. BMP within normal (04/2013). Continue current medication and low salt diet. BP within normal. Mixed hyperlipidemia 410797749 Continue her current medication and low fat/choles terol diet. Schedule for a PHA visit in 2-3 months. Osteoporosis 67272789 Co ntinue Vitamin D. [id number] Mariola Alejo NP FP, [facility], [address] [place] [address] 12/03/2013 11:00:29 12/07/2013 14:30:06 Pain of joint of hand 611138514 Referral to PT/OT. Tylenol - may alternate with ibuprofen prn - with food. Consider rheumatolo gy referral Again advise pt to bring production quality manager to next appt [id number] Aria Baez OT Physical Therapy, [facility] [address] [place] [address] 12/09/2013 11:40:48 12/10/2013 14:21:54 Pain of joint of hand 922327459 [id number] Aria Baez OT Physical Therapy, [facility] [address] [place] [address] 12/14/2013 14:11:48 12/14/2013 15:29:19 Pain of joint of hand 874888155 [id number] PA Suh, [facility], [address] [place] [address] 04/07/2014 09:53:28 04/07/2014 12:24:34 Adult health examination 002098813 see Risk Assessment and Lifestyle Change Counseling section above Counseling [id number] Mixed hyperlipidemia 293472558 Cholestero l is at goal Continue to work on diet and exercise as discussed Benign ess ential hypertension 5944713 Blood pressure NOT at goal. Pt states did not take todays meds yet Unclear compliance . Will talk with son re importance of regular dosing Generalize d osteoarthritis 688368118 Will recheck ESR to r/o PMR. Likely OA, renal function is intact and will consider meloxicam or celebrex to see if she is afforded some relief. COnsder rheum consult. [id number] PA Suh, [facility], [address] [place] [address] 06/08/2014 07:04:43 06/08/2014 07:52:20 Benign essential hypertension 3546985 Blood pressure at goal. Taking meds regularly Will order BP cuff to improve compliance Mixed hyperlipidemia 613566033 Cholestero l is at goal Continue to work on diet and exercise as discussed Dizziness 031046636 uncl ear etiology will check labs to r/o anemia due to hemoccult + stools enc increased fluid intake Occult blo od detected in feces 43609105 Has GI apt 06/21 Will check CBC today Influenza vaccine needed [id number] PA Suh, [facility], [address] [place] [address] 08/30/2014 10:49:34 08/30/2014 11:43:20 Benign essential hypertension 0836574 Blood pressure at goal Gastroesop hageal reflux disease 449753038 Muscle pain 82425853 Mixed hyperlipidemia 315469206 stop statin for now to see if muscle pain improves check labs [id number] PA Suh, [facility], [address] [place] [address] 11/08/2014 13:39:18 11/08/2014 14:08:30 Mixed hyperlipidemia 786100494 stable off statin and muscle pain decreased continue to monitor Benign ess ential hypertension 7819011 Blood pressure at goal Gastroesop hageal reflux disease 982239529 stable on med Pain of joint of hand 514976756 SL improved- suggest Aspercreme or Arnica. Again advise pt to bring production quality manager to next appt [id number] PA Suh, [facility], [address] [place] [address] 04/11/2015 10:07:03 04/11/2015 10:59:24 Adult health examination 500725686 see Risk Assessment and Lifestyle Change Counseling section above Counseling [id number] Benign ess ential hypertension 9875318 not at goal Mixed hyperlipidemia 028861267 stable off statin and muscle pain decreased continue to monitor Gastroesop hageal reflux disease 693144870 stable on med Osteopenia 878998256 [id number] PA Suh, [facility], [address] [place] [address] 10/10/2015 09:58:04 10/10/2015 10:48:26 Screening mammography 04201597 Z12.31 Benign ess ential hypertension 6738287 I10 not at goal - discussed need to take med in AM daily, even if fasting labs try to take BP away from office and report high readings no med changes today Active or passive immunization 426593952 Z23 Osteoporosis 04030567 M8 1.0 stable walking for exercise, taking vitamin D Varicella vaccination 68 204229 Z23 [id number] Martha Wong, [facility], [facility] [address] [place] [address] 04/09/2016 08:49:22 04/09/2016 09:52:47 Dry eyes 824519631 H04.129 by history, continue AT d prn 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 Pseudophakia 57195201 Z9 6.1 OU; clear, observe Myopia 54096871 H52.13 [id number] Fariba Douglas NP FP, [facility], [address] [place] [address] 05/02/2016 10:11:34 05/02/2016 11:32:31 Adult health examination 360719895 Z00.00 see Risk Assessment and Lifestyle Change Counseling section above Counseling 578978817 Z71 .9 Trigger finger 896771180 1 34948 M65.30 mild, L middle. will try ice and ibuprofen Impairment of balance 38 1881829 R26.89 walk with cane and schedule with PT Active or passive immunization 270864324 Z23 Benign ess ential hypertension 8345517 I10 BP at goal of <140/90, continue current medication s, tolerating well [id number] Kayden Guallpa MD , [facility], [address] [place] [address] 07/12/2016 10:38:40 07/12/2016 11:06:38 Hand pain 79877214 M79.642 -xray pending-wi ll speak to Dr Solitario nurse to see when they could schedule the patient for ?injection -Follow up with PCP as needed Benign ess ential hypertension 5745593 I10 refilled she needs more than a month supply for her travels Osteoporosis 99047322 M8 1.0 refilled she needs more than a month supply for her travels [id number] Mika Solitario MD PhD Rheumat[facility], [address] [place] [address] 07/17/2016 07:54:27 07/17/2016 11:24:51 Trigger finger 9070633299 71693 M65.30 trigger finger of left 3rd digit. Steroid injection. Subacromial bursitis 407 62960 M75.51 possible right subacromia l bursitis. she declined steroid injection and encourage exercises. instructio n was given. Osteoarthr itis of multiple joints 734043778 M15.9 typical OA changes consistent with X-ray findings. encourage exercises and instructio n was given. [id number] Kayden Guallpa MD , [facility], OFFICE [address] [place] [address] 07/29/2016 16:02:31 07/29/2016 16:51:08 Low back pain 504938188 M54.5 [id number] Kayden Guallpa MD , [facility], OFFICE [address] [place] [address] 07/30/2016 10:20:58 07/30/2016 11:17:51 Low back pain 138091984 M54.5 [id number] VLADIMIR Polanco , [facility], OFFICE [address] [place] [address] 09/10/2016 08:45:33 09/10/2016 10:11:10 Benign essential hypertension 4204737 I10 -at baseline on medication -follow up in october for DM appt.-labs prior to the appt. Generalize d osteoarthritis 523025630 M15.9 -pain resolved-i nstructed to stop omeprezole , naproxen, and cyclobenza pine. Use the pain medication as needed-the trigger finger resolved after the steroid injection [id number] Jesús Dos Santos MD , [facility], OFFICE [address] [place] [address] 11/06/2016 09:19:29 11/06/2016 09:47:57 Benign essential hypertension 9719998 I10 -Blood pressure at goal on medication -bmp normal Osteoporosis 77590095 M8 1.0 refilled Low back pain 546057471 M54.5 rx given for walkerrefi lled muscle relaxant Generalize d osteoarthritis 518166354 M15.9 -pain resolved-t he trigger finger resolved after the steroid injection [id number] Jimena Amin , [facility], OFFICE [address] [place] [address] 02/18/2017 16:05:41 02/18/2017 16:53:03 Cough 17886427 R05 - viral URI versus acid reflux- cough medicine for the next week as needed- return to office if not resolved in one week, or if develop a fever Heartburn 66331202 R12 - Take omeprazole 30 minutes before breakfast on an empty stomach- Avoid triggers such as tobacco, alcohol, caffeine, spicy foods, etc- Do not lie down for at least two hours after eating- Avoid over eating [id number] MD CASEY Miguel, [facility], [address] [place] [address] 05/06/2017 10:01:13 05/06/2017 11:25:26 Adult health examination 305635078 Z00.00 see Risk Assessment and Lifestyle Change Counseling section above Counseling 235016103 Z71 .9 Healthy lifestyle changes may help [...] up to date Benign ess ential hypertension 2494174 I10 Not at goal; goal is <150/90cal led Son and he will get her medication as well. Active or passive immunization 527811729 Z23 updated Osteoporosis 39780413 M8 1.0 refilled for the year Low back pain 743280816 M54.5 -staff will call in regards to walker-tyl enol 500mg every 4 hours as needed for pain-will consider PT if needed [id number] MD CASEY Miguel, [facility], [address] [place] [address] 05/21/2017 09:50:28 05/21/2017 10:27:59 Low back pain 719061325 M54.5 awaiting walkertyle nol ER as needed for painarnica gel and muscle rub to the areas of pain-follo w up for worsening pain-pendi ng bone scan Osteoporosis 70196031 M8 1.0 bone scan pending tomorrow Benign ess ential hypertension 4080756 I10 -at goal is <150/90-co ntinue lisinopril /HCTZ-watc h your salt in your diet [id number] Martha Wong, OD Eye Care, [facility] [address] [place] [address] 05/22/2017 10:26:43 05/22/2017 12:41:56 Myopia 78212817 H52.13 Dry eyes 706296385 H04.1 29 by history, continue AT qid prn Retinal la ttice degeneration 7503999 H35.412 no holes; pt ed, discussed symptoms of retinal detachment , pt instructed to RTC angelica if occurs. monitor annually. Pseudophakia 74659403 Z9 6.1 OU; clear, observe [id number] Kayden Guallpa MD , [facility], OFFICE [address] [place] [address] 08/29/2017 17:26:55 09/01/2017 10:07:42 Gastroesophageal reflux disease 586151912 K21.9 Benign ess ential hypertension 8065337 I10 well-contr olled on lisinopril -HCTZ [id number] VLADIMIR Sotelo , [facility], OFFICE [address] [place] [address] 04/13/2018 09:58:37 04/13/2018 10:36:45 Active or passive immunization 058107980 Z23 Agreeable to vaccine today. Pain in thumb 472318706 M79.642 Left thumb pain and limitation in ROM found in a 77 y/o female w/ a Hx of degenerati ve joint disease, presentati on suspicious for trigger finger. Pt will have imaging taken today.Cons ider rheum referral for injection. Pain of ri ght shoulder joint 6796955563 9379732 M25.511 Pain in right shoulder likely secondary to an etiologica l combinatio n of joint and muscle issues. Pt seeing some relief with stretching . Recommende d PT referral to continue gains. Pt encouraged to f/u if sxs change or worsen. [id number] Dorene Frausto, PT Physical Therapy, [address] [address] 05/04/2018 12:07:49 05/06/2018 10:51:56 Pain of shoulder region 16536408 M25.817 [id number] Jimena Amin , [facility], OFFICE [address] [place] [address] 05/04/2018 13:34:35 05/04/2018 14:34:18 Tear of skin 100772181 T14.8XXA See above plan Cellulitis 411402129 L03 .90 Will treat with Keflex 500mg [...] Kumar NP who agrees with above plan. [id number] Dorene Frausto, PT Physical Therapy, [address] [address] 05/07/2018 09:30:50 05/11/2018 07:38:47 Pain of shoulder region 70643838 M25.886 [id number] Dorene Frausto, PT Physical Therapy, [address] [address] 05/15/2018 09:28:38 05/15/2018 10:16:34 Pain of shoulder region 56495107 M25.860 [id number] Martha Wong, [facility], [facility] [address] [place] [address] 05/25/2018 10:05:40 05/25/2018 12:07:13 Myopia 41089123 H52.13 Dry eyes 594870911 H04.1 29 by history, continue AT qid prn Retinal la ttice degeneration 3816730 H35.412 no holes; pt ed, discussed symptoms of retinal detachment , pt instructed to RTC angelica if occurs. monitor annually. Pseudophakia 26907938 Z9 6.1 OU; clear OD, minimal PCO OS, not visually significan t, observe [id number] Dorene Frausto, PT Physical Therapy, [address] [address] 06/04/2018 08:40:46 06/04/2018 09:44:57 Pain of shoulder region 44760162 M25.316 [id number] Kayden Guallpa MD , [facility], OFFICE [address] [place] [address] 10/01/2018 13:27:39 10/01/2018 16:57:21 Adult health examination 869078149 Z00.00 see Risk Assessment and Lifestyle Change Counseling section above Counseling 568999210 Z71 .9 Depression screening 171 511779 Z13.89 depression screening tool administer ed, entered into emr, scored and discussed, time greater than 7.5 minutes. Screening reviewed with pt. 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 [id number] Kayden Guallpa MD , [facility], OFFICE [address] [place] [address] 04/07/2019 09:46:35 04/08/2019 13:59:38 Generalized osteoarthritis 401813476 M15.9 Benign ess ential hypertension 5534189 I10 Not at goal of under 130/80 on lisinopril -HCTZ Gastroesop hageal reflux disease 502705205 K21.9 [id number] Kayden Guallpa MD , [facility], OFFICE [address] [place] [address] 05/05/2019 09:34:35 05/05/2019 14:46:53 Active or passive immunization 546798884 Z23 [id number] Martha Wong, OD Eye Care, [facility] [address] [place] [address] 05/27/2019 10:24:08 05/27/2019 13:44:24 Myopia 60578538 H52.13 hold on glasses rx until sees ophthalmol ogist Dry eyes 342863099 H04.1 29 by history, continue AT d prn Retinal la ttice degeneration 5166898 H35.412 no holes; pt ed, discussed symptoms of retinal detachment , pt instructed to RTC angelica if occurs. monitor annually. Pseudophakia 31884392 Z9 6.1 OU; clear OD, minimal PCO OS, not visually significan t, observe Vitreous o pacity of right eye 7941944635 80578 H43.391 Health Concerns Section Related Observation LastModified by Organization Detai ls LastModified Time None Recorded Concern Status LastModified by Organization Details LastModified Time None Recorded Advance Directives Directive None Recorded Payers Encounter Date Sequence Insurance Name Policy Number Policy Guzman Covered Member ID Guzman Member ID Guarantor Name 06/04/2018 1 [place] [employer] Jashuben S Montgomery [id number] Jashuben S Montgomery 06/04/2018 2 [place] Jalucerouben S Montgomery [id number] Jashuben S Montgomery 10/01/2018 1 [place] [employer] Jashuben S Montgomery [id number] Jashuben S Montgomery 10/01/2018 2 [place] Jashuben S Montgomery [id number] Jashuben S Montgomery 04/07/2019 1 [place] [employer] Jashuben S Montgomery [id number] Jashuben S Montgomery 04/07/2019 2 [place] Jashuben S Montgomery [id number] Jashuben S Montgomery 05/05/2019 1 [place] [employer] Jashuben S Montgomery [id number] Jashuben S Montgomery 05/05/2019 2 [place] Jashuben S Montgomery [id number] Rukhsana Boris Ulises Notes Date Note Type Note Provider Name and Address Organization Details Recorded Time 8 text/html My shoulder hurts when I reach behind my back. We have put my on hospice yesterday. Dorene Frausto, PT [address] [facility], [place], [address], [place] [facility] 06/04/2018 09:30:11 9 text/html Physical Exam/FemaleReported bypatient.PHAPatient is here for a Wellness Visit. She describes her health status as fair. Patient's health is the same as last year.Notes: 06/05/18 after 8 months in SNF.Lives with her son and his family.Daughter lives in [facility] Assessment and Lifestyle Change Counseling 65+ (Medicare)Reported [...] capacity; No snoring Jessy Lira NP [address] [place], [address], [facility] 10/05/2018 18:08:09 9 text/html VMG HypertensionReported bypatient.Control:BP [...] using omeprazole consistently. Jessy Lira NP [address] [place], [address], [facility] 04/07/2019 11:51:17 9 text/html Comprehensive Eye ExamReported bypatient.Quality:2 year exam;blurred vision near and distance with glasses Location:bilateral (OD>OS) Context:currently wears glasses Modifying factors:wears glasses for distance and near Associated Symptoms:no redness; no itching; no floaters;dryness Martha Wong, OD [address] [place], [address], [facility] 05/27/2019 16:40:10 OBGyn Episode No OBEpisode recorded.
[2024-12-17 16:17] LABS: Antibody to SS-A Antigen <1.0 NEG AI (<1.0 NEG); Antibody to SS-B Antigen <1.0 NEG AI (<1.0 NEG)
== END 2024-12-16 14:32 | disposition home or self-care (01) ==
LOC: HO.LAB 14:31
PROVIDERS: PCP Internal Medicine; Visit Provider Internal Medicine
DX: E78.2 Mixed hyperlipidemia (principal); I10 Essential (primary) hypertension; N32.81 Overactive bladder; N39.498 Other specified urinary incontinence; R68.2 Dry mouth, unspecified
CPT/HCPCS: 36415; 86235

== ENCOUNTER 2025-05-05 09:32 | Outpatient (REF) | payer MEDICARE, SELFPAY ==
--- OUTSIDE RECORDS SUMMARY | 2025-05-05 10:57 | XMS_ITS | Clinical Summary ---
Author Organization [facility] Address [address] [place] [phone] Phone Care Team Providers Care Farmworker Poultry Name Role Phone Unknown, Unknown Primary Care Provider Mario rasheed Social History Tobacco Use Types Packs/Day Years Used Date Smoking Tobacco: Never Assessed Education Answer Date Recorded Are you interested in more education? Not on nikki e 11/15/2022 Are you concerned about learning? Not on file 11/15/2022 No 11/15/2022 No 11/15/2022 Digital Access Answer Date Recorded No 12/16/2022 No 12/16/2022 No 12/16/2022 Reliable internet access at home? Not on file 12/16/2022 Device with a working camera? Not on file Comments Unknown Sex and Gender Information Value Date Recorded Sex Assigned at Not on file Legal Sex Female 10:12 PM EDT Gender Identity Not on file Sexual Orientation Not on file Plan of Treatment Not on file Medical Devices Not on file Insurance [facility] MEDICARE REPLACEMENT MEDICARE REPLACEMENT MEDICARE REPLACEMENT MEDICARE REPLACEMENT MEDICARE REPLACEMENT MEDICARE REPLACEMENT Care Teams Farmworker Poultry Relationship Specialty Start Date End Date Unknown, Unknown, PCP - General 2/6/23 Additional Source Comments The information contained in this document represents components of the legal health record. It is not the complete legal health record.[facility]
[2025-05-05 11:08] LABS: Alanine Aminotransferase 12 U/L (0-31); Albumin Level 4.2 g/dL (3.5-5.0); Alkaline Phosphatase 53 U/L (39-117); Anion Gap 15 (12-20); Aspartate Amino Transferase 25 U/L (5-31); Blood Urea Nitrogen 22 mg/dL (9-16); Calcium 9.3 mg/dL (8.4-10.2); Carbon Dioxide 23 mmol/L (22-29); Chloride 104 mmol/L (96-108); Estimated Glomerular Filt Rate 54; Potassium 3.9 mmol/L (3.3-5.1); Sodium 138 mmol/L (135-145); Total Protein 7.6 g/dL (6.5-8.0)
[2025-05-05 11:28] LABS: Thyroid Stimulating Hormone 3.27 uIU/mL (0.32-4.0)
[2025-05-05 11:46] LABS: Folate 14.4 ng/mL (> or = 4.0); Vitamin B12 > 2000 pg/mL (200-900)
== END 2025-05-05 09:33 | disposition home or self-care (01) ==
LOC: HO.10HDL 09:32
PROVIDERS: Visit Provider Internal Medicine
DX: I10 Essential (primary) hypertension (principal); I95.1 Orthostatic hypotension; L65.0 Telogen effluvium; M81.0 Age-related osteoporosis without current pathological fracture; R26.89 Other abnormalities of gait and mobility
CPT/HCPCS: 36415; 80053; 82306; 82607; 82746; 84443